=== PATIENT | male | born 1955 | race African-American/Black ===

== ENCOUNTER 2017-02-09 09:29 | Inpatient (IN) | payer OTHER ==
[~2017-02-09] VITALS: Ht 180.3 cm; Wt 115.7 kg
--- NOTE | ~2017-02-09 | H ---
[facility] [place] [address] HISTORY AND PHYSICAL Name: SUZETTE SEVERINO Room #: 427-P [facility] IN M.R.#: [id number] Admission: 02/09/17 Attend Phys: Kade Joseph MD Discharge: Date of : 59 Report #: [id number] THIS REPORT FOR: //name// CC: FAM unknown Kade Joseph DATE OF SERVICE: 02/09/2017 CHIEF COMPLAINT: Bilateral lower extremity swelling and pain. HISTORY OF PRESENT ILLNESS: The patient is a 61-year-old man with history of lymphedema, who noticed increased swelling and redness in bilateral lower extremities during last 3-4 days. Then, the patient developed blisters, erythematous discoloration, and severe pain. He presents to the Emergency Room. Based on clinical examination, the patient is suspected to have cellulitis. The patient has no other symptoms. He denies chest pain, shortness of breath, heart palpitations, dizziness, blurry vision or other symptoms. His blood pressure has been stable, and he is afebrile. PAST MEDICAL HISTORY: 1. Chronic lymphedema. 2. History of cellulitis. 3. Chronic back pain, opiate dependent, currently on methadone. 4. Schizophrenia. CURRENT MEDICATIONS: Lasix 40 mg once a day, potassium chloride 10 mEq once a day, Abilify 10 mg at night, and methadone 110 mg once a day. FAMILY HISTORY: Reviewed and not pertinent to the patient's current condition. SOCIAL HISTORY: The patient lives by himself. He is on disability due to schizophrenia. He does not smoke cigarettes and does not drink alcohol. PHYSICAL EXAMINATION: GENERAL: The patient is a middle-aged man who is in no apparent distress. VITAL SIGNS: Blood pressure is 151/71, heart rate is 76, respiration is 18, and temperature is 98.0. HEENT: Pupils are equal. Eye movements are normal. The patient has anicteric sclerae. The patient has no teeth. Oral mucosa is moist. JVD is not appreciated. The patient does not have neck lymphadenopathy. RESPIRATORY: Chest moves symmetrically with breathing. Lungs are clear to auscultation bilaterally. CARDIOVASCULAR: The patient has regular rhythm and rate. He has no murmurs, gallops or rubs. GASTROINTESTINAL: Abdomen is slightly distended. Bowel sounds are present. [address] [address] HISTORY AND PHYSICAL Name: SUZETTE SEVERINO Room #: 427-P [facility] IN M.R.#: [id number] Admission: 02/09/17 Attend Phys: Kade Joseph MD Discharge: Date of : 59 Report #: [id number] The patient has no tenderness. Hepatomegaly or splenomegaly is not palpated. MUSCULOSKELETAL: The patient has no joint deformity. Range of motion is normal. He has 2+ pitting edema on the legs, blisters. Skin is erythematous and warm. NEUROLOGIC: The patient is alert and oriented x 3. His examination is grossly nonfocal. LABORATORY DATA: Metabolic profile shows potassium of 3.4, but otherwise basic metabolic profile is normal. On CBC, the patient has normal CBC and differential, except for slightly high monocytes at 11.2%. ASSESSMENT AND PLAN: 1. Bilateral lower extremity cellulitis, in a setting of chronic lymphedema, recurrent problem. The patient is started on IV Ancef. Blood cultures are taken. Leg elevation. 2. Chronic lymphedema. Lower extremity swelling. Change Lasix to IV. Monitor electrolytes. Low salt diet. 3. Hypokalemia, mild. It will be replaced and rechecked. 4. Schizophrenia. Stable, resume Abilify, home regimen. 5. Chronic back pain, opiate dependent. Methadone dose is being clarified, and will be resumed at outpatient regimen. 6. Deep venous thrombosis prophylaxis. SubQ Lovenox. <ELECTRONICALLY SIGNED> By: Kade Joseph MD 02/09/176 1514 1526 Kade Joseph MD /nt
[2017-02-09 09:30] VITALS: BP 157/82
[2017-02-09] MEDS ORDERED: LASIX 40 MG TAB40 M1 PO (09:40)
[2017-02-09] MEDS ORDERED: KLOR-CON 1010 MEQ PO (09:40)
[2017-02-09 10:04] LABS: ABSOLUTE NEUTROPHILS 5.1 thou/uL (1.4-8.2); BASOPHILS 0.7 % (0.0-2.0); EOSINOPHILS 2.9 % (0.0-3.0); HEMOGLOBIN 15.2 gm/dL (14.0-18.0); LYMPHOCYTES 23.1 % (24.0-44.0); MCH 29.8 pg (26.0-34.0); MCV 90.4 fL (80.0-100.0); MONOCYTES 11.2 % (1.0-8.0); PLATELET COUNT 199 thou/uL (150-400); POLYS 62.1 % (36.0-66.0); RBC 5.09 mil/uL (4.50-6.00); RDW 14.1 % (10.5-14.5); WBC 8.3 thou/uL (4.0-11.0)
[2017-02-09 10:05] LABS: MANUAL DIFF NO
[2017-02-09 10:11] LABS: POTASSIUM 3.4 mmol/L (3.5-5.1)
[2017-02-09 11:15] VITALS: BP 149/71
[2017-02-09 12:54] VITALS: BP 146/74
[2017-02-09 14:00] VITALS: BP 151/71
[2017-02-09 17:57] LABS: URINE BILIRUBIN NEGATIVE (Negative); URINE BLOOD NEGATIVE (Negative); URINE COLOR YELLOW; URINE GLUCOSE-RANDOM* NEGATIVE (Negative); URINE KETONES NEGATIVE (Negative); URINE LEUKOCYTES-REFLEX NEGATIVE (Negative); URINE PROTEIN (DIPSTICK) NEGATIVE (Negative)
[2017-02-09 20:30] VITALS: BP 149/82
[2017-02-10 03:11] VITALS: BP 125/63
[2017-02-10 07:38] VITALS: BP 147/74
[2017-02-10 10:31] VITALS: BP 147/74
[2017-02-10 15:57] VITALS: BP 123/71
[2017-02-10 20:00] VITALS: BP 125/71
[2017-02-11 00:12] VITALS: BP 115/70
[2017-02-11 04:08] VITALS: BP 141/67
[2017-02-11 05:06] VITALS: BP 141/67
[2017-02-11 06:12] LABS: ABSOLUTE NEUTROPHILS 4.8 thou/uL (1.4-8.2); BASOPHILS 0.8 % (0.0-2.0); EOSINOPHILS 4.3 % (0.0-3.0); HEMATOCRIT 43.9 % (42.0-52.0); HEMOGLOBIN 14.1 gm/dL (14.0-18.0); LYMPHOCYTES 30.5 % (24.0-44.0); MCH 29.8 pg (26.0-34.0); MCHC 32.2 g/dL (28.0-37.0); MCV 92.5 fL (80.0-100.0); MONOCYTES 9.9 % (1.0-8.0); PLATELET COUNT 192 thou/uL (150-400); POLYS 54.5 % (36.0-66.0); RBC 4.75 mil/uL (4.50-6.00); RDW 13.9 % (10.5-14.5); WBC 8.8 thou/uL (4.0-11.0)
[2017-02-11 06:17] LABS: MANUAL DIFF NO
[2017-02-11 06:32] LABS: MAGNESIUM 1.9 mg/dL (1.8-2.4); POTASSIUM 3.9 mmol/L (3.5-5.1)
[2017-02-11 07:30] VITALS: BP 156/76
[2017-02-11 16:30] VITALS: BP 144/85
[2017-02-11 19:49] VITALS: BP 149/82
[2017-02-12 05:00] VITALS: BP 140/75
[2017-02-12 07:16] VITALS: BP 141/87
[2017-02-12 08:44] LABS: ABSOLUTE NEUTROPHILS 3.9 thou/uL (1.4-8.2); BASOPHILS 0.9 % (0.0-2.0); EOSINOPHILS 5.3 % (0.0-3.0); HEMATOCRIT 48.8 % (42.0-52.0); HEMOGLOBIN 15.5 gm/dL (14.0-18.0); LYMPHOCYTES 33.7 % (24.0-44.0); MCH 29.5 pg (26.0-34.0); MCHC 31.8 g/dL (28.0-37.0); MONOCYTES 10.2 % (1.0-8.0); PLATELET COUNT 215 thou/uL (150-400); POLYS 49.9 % (36.0-66.0); RBC 5.25 mil/uL (4.50-6.00); RDW 14.2 % (10.5-14.5); WBC 7.7 thou/uL (4.0-11.0)
[2017-02-12 08:45] LABS: MANUAL DIFF NO
[2017-02-12 08:53] LABS: CALCIUM 9.4 mg/dL (8.5-10.1); CREATININE 0.9 mg/dL (0.7-1.3); POTASSIUM 4.3 mmol/L (3.5-5.1)
[2017-02-12 15:10] VITALS: BP 129/77
[2017-02-12 20:00] VITALS: BP 136/84
[2017-02-13 05:43] VITALS: BP 119/53
[2017-02-13 09:02] VITALS: BP 129/65
[2017-02-13 15:45] VITALS: BP 132/68
[2017-02-13 20:09] VITALS: BP 122/58
[2017-02-14 03:47] VITALS: BP 120/63
[2017-02-14 08:45] VITALS: BP 144/88
[2017-02-14] MEDS ORDERED: KEFLEX500 M1 PO ×2 (12:18→12:42)
[2017-02-14] MEDS ORDERED: ATIVAN0.5 MG PO (12:19)
[2017-02-14] MEDS ORDERED: OXYCODONE-APAP1 EAC6 PO ×2 (12:19→12:42)
[2017-02-14 12:48] VITALS: BP 144/88
== END 2017-02-14 14:19 | disposition home or self-care (01) | DRG 603 ==
LOC: ER 09:29 → EROBS 11:19 → 4E 11:19
PROVIDERS: Hospitalist; Internal Medicine Endocrinology, Diabetes & Metabolism; Nurse Practitioner; Physician Assistant
DX: L03.115 Cellulitis of right lower limb (principal); F11.20 Opioid dependence, uncomplicated; L03.116 Cellulitis of left lower limb; E87.6 Hypokalemia; I89.0 Lymphedema, not elsewhere classified; M54.9 Dorsalgia, unspecified; G89.29 Other chronic pain; F20.9 Schizophrenia, unspecified; Z88.8 Allergy status to other drugs, medicaments and biological substances
CPT/HCPCS: 10084

== ENCOUNTER 2018-03-23 10:24 | Emergency (ER) | payer OTHER ==
[~2018-03-23] VITALS: Ht 177.8 cm; Wt 106.6 kg
[~2018-03-23 10:24] MED LIST: ATIVAN0.5 MG PO; KEFLEX500 M1 PO; KLOR-CON 1010 MEQ PO; LASIX 40 MG TAB40 M1 PO; OXYCODONE-APAP1 EAC6 PO
[2018-03-23] MEDS ORDERED: POTASSIUM20 PO (10:33)
[2018-03-23] MEDS ORDERED: METHADOSE40 MG PO (10:34)
[2018-03-23 11:57] LABS: ABSOLUTE NEUTROPHILS 4.2 thou/uL (1.4-8.2); BASOPHILS 0.6 % (0.0-2.0); EOSINOPHILS 4.6 % (0.0-3.0); HEMATOCRIT 41.3 % (42.0-52.0); HEMOGLOBIN 13.6 gm/dL (14.0-18.0); LYMPHOCYTES 29.9 % (24.0-44.0); MCH 30.3 pg (26.0-34.0); MCV 91.9 fL (80.0-100.0); MONOCYTES 9.3 % (1.0-8.0); PLATELET COUNT 185 thou/uL (150-400); POLYS 55.6 % (36.0-66.0); RDW 13.9 % (10.5-14.5); WBC 7.6 thou/uL (4.0-11.0)
[2018-03-23 12:12] LABS: CALCIUM 8.8 mg/dL (8.5-10.1); CREATININE 0.9 mg/dL (0.7-1.3); POTASSIUM 4.5 mmol/L (3.5-5.1)
[2018-03-23] MEDS ORDERED: KEFLEX500 M1 PO (12:53)
[2018-03-23] MEDS ORDERED: TRAMADOL 50 MG50 MG PO (12:56)
[2018-03-23] MEDS ORDERED: VOLTAREN GEL 1100 G2 TOP (12:57)
[2018-03-23] MEDS ORDERED: ACETAMINOPHEN-1 EAC1 PO (13:08)
[2018-03-23 13:10] VITALS: BP 140/81
== END 2018-03-23 13:53 | disposition home or self-care (01) ==
LOC: ER 10:24
PROVIDERS: Physician Assistant
DX: I89.0 Lymphedema, not elsewhere classified (principal); L03.116 Cellulitis of left lower limb; L03.115 Cellulitis of right lower limb; F20.9 Schizophrenia, unspecified; Z88.6 Allergy status to analgesic agent; Z88.8 Allergy status to other drugs, medicaments and biological substances

== ENCOUNTER 2018-06-04 14:02 | Inpatient (IN) | payer OTHER ==
[~2018-06-04] VITALS: Ht 180.3 cm; Wt 122.5 kg
[2018-06-04 14:02] VITALS: BP 143/70
[~2018-06-04 14:02] MED LIST changes: +ACETAMINOPHEN-1 EAC1 PO; +METHADOSE40 MG PO; +POTASSIUM20 PO; +TRAMADOL 50 MG50 MG PO; +VOLTAREN GEL 1100 G2 TOP
--- NOTE | 2018-06-04 14:10 | NUR ---
PT HAD STEADY GAIT AMBULATING TO ROOM 10.
[2018-06-04 14:50] LABS: AMP/METHAMP Negative (Negative); BARBITURATES Negative (Negative); COCAINE Negative (Negative); METHADONE POSITIVE (Negative); OPIATES Negative (Negative); PCP Negative (Negative)
[2018-06-04 14:58] LABS: BENZODIAZEPINES Negative (Negative)
[2018-06-04 15:09] LABS: ABSOLUTE NEUTROPHILS 2.8 thou/uL (1.4-8.2); BASOPHILS 0.7 % (0.0-2.0); EOSINOPHILS 3.9 % (0.0-3.0); HEMATOCRIT 40.4 % (42.0-52.0); HEMOGLOBIN 13.2 gm/dL (14.0-18.0); LYMPHOCYTES 41.6 % (24.0-44.0); MCH 29.8 pg (26.0-34.0); MCHC 32.6 g/dL (28.0-37.0); MCV 91.5 fL (80.0-100.0); MONOCYTES 10.1 % (1.0-8.0); PLATELET COUNT 172 thou/uL (150-400); POLYS 43.7 % (36.0-66.0); RBC 4.42 mil/uL (4.50-6.00); WBC 6.5 thou/uL (4.0-11.0)
[2018-06-04 15:15] LABS: ANION GAP 6 mmol/L (7-16); BUN 13 mg/dL (7-18); CALCIUM 8.9 mg/dL (8.5-10.1); CHLORIDE 105 mmol/L (98-107); CO2 30 mmol/L (21-32); GLUCOSE 86 mg/dL (74-106); POTASSIUM 4.2 mmol/L (3.5-5.1); SODIUM 141 mmol/L (136-145)
[2018-06-04 15:24] LABS: ALBUMIN 3.2 g/dL (3.4-5.0); APTT 27.1 Seconds (24.5-32.8); INR 1.1; MAGNESIUM 1.8 mg/dL (1.8-2.4); SGOT 31 U/L (15-37); SGPT 33 U/L (30-65); TOTAL BILIRUBIN 0.6 mg/dL (<0.1-1.0); TOTAL PROTEIN 7.8 g/dL (6.4-8.2); TROPONIN-I <0.06 ng/mL (<0.06)
[2018-06-04 16:06] VITALS: BP 137/65
[2018-06-04 17:52] VITALS: BP 131/61
[2018-06-04 18:15] VITALS: BP 152/89
--- NOTE | 2018-06-04 19:15 | NUR ---
PT ARRIVED 1800 FROM ED, CELLULITIS AND LYMPHADIMA, ALERT X3, STATES HE LIVES IN APARTMENT, PAIN MANAGED WITH MEDS. PROVIDED BOX MEAL AND DRINK, NOTED [facility]. CONTINENT USES URINAL, NO TEETH. SWELLING AND REDNESS WITH BLISTERS BILATERAL LE. ADDMISSION HISTORY AND ASSESMENT COMPLETED CALL LIGHT IN REACH.
[2018-06-04 19:24] VITALS: BP 142/81
[2018-06-05 07:25] VITALS: BP 122/66
--- NOTE | 2018-06-05 13:37 | NUR ---
TOWARDS POC PT A/O X4, VSS, AFEBRILE, NO SOA, NO NV. PAIN MANAGED BY MEDICATIONS. PT WAS AGITATED THIS PM ABOUT HIS METHADONE. PT WAS TAKING 175MG AT HOME, NOTIFIED AND PUT HIM TO 30MG BID. PT IS NOT HAPPY ABOUT IT. PT WENT DOWNSTAIRS AT ER AND CALL 911 ACCUSED THE RN THAT HE'S STEALING HIS MEDICATIONS.
[2018-06-05 14:02] VITALS: BP 149/84
[2018-06-06 08:00] VITALS: BP 143/64
--- NOTE | 2018-06-06 08:16 | NUR ---
PROGRESS PT INAPPROPRIATE WALKING IN HALLS CURSING AT STAFF. AMBULATED DOWN TO ED INDEPENDENTLY AT 1900 STATED HE WAS LEAVING, I WENT DOWN AND REQUESTED HE RETURN TO [facility] TO TALK ABOUT CARE AND GET IV REMOVED. PT DECIDED TO STAY, AFTER DISCUSSING PAIN MANAGEMENT. TRUCK SALES REPRESENTATIVE CAME TO TALK TO PT AND ADVISED IF HE LEAVES THE UNIT AGAIN HE WOULD BE CONSIDERED HAVING LEFT AGAINST MEDICAL ADVICE. PT AGREED TO REMAIN ON UNIT AND STAY UNTIL THE MORNING.
[2018-06-06] MEDS ORDERED: CLEOCIN HCL150 MG PO (10:05)
[2018-06-06] MEDS ORDERED: LASIX 40 MG TAB40 M1 PO (10:06)
[2018-06-06] MEDS ORDERED: OXYCODONE-APAP1 EAC6 PO (10:08)
[2018-06-06 10:35] VITALS: BP 143/64
--- NOTE | 2018-06-06 11:20 | NUR ---
ASSUMED PATIENT CARE AT 0715. A&OX4. PATIENT VERY AGGRESSIVE AND ABUSIVE TO STAFF. PATIENT STATING "GET OUT OF MY ROOM BITCH". PATIENT STARTED BANGING ON MEDICATION ROOM DOOR AND STATED "GIVE ME MY MEDICATION BITCH". SECURITY WAS CALLED. HOSPITALIST INFORMED OF PATIENTS OUTBURSTS. PATIENTS LEGS LOOKING BETTER. DOCTOR CHANGED ANTIBIOTICS TO ORAL AND CLEARED PATIENT FOR DISCHARGE. DISCHARGE INSTRUCTIONS DISCUSSED. CAB CALLED AND PATIENT GIVEN CAB VOUCHER.
== END 2018-06-06 11:41 | disposition home or self-care (01) | DRG 603 ==
LOC: ER 14:02 → EROBS 15:48 → 4W 17:56
PROVIDERS: Emergency Medicine; ADMIT Hospitalist
DX: L03.116 Cellulitis of left lower limb (principal); F20.9 Schizophrenia, unspecified; I89.0 Lymphedema, not elsewhere classified; G89.4 Chronic pain syndrome; L03.115 Cellulitis of right lower limb; Z79.82 Long term (current) use of aspirin; Z79.899 Other long term (current) drug therapy
CPT/HCPCS: 10040

== ENCOUNTER 2018-06-21 09:11 | Emergency (ER) | payer OTHER ==
[~2018-06-21] VITALS: Ht 180.3 cm; Wt 97.5 kg
[~2018-06-21 09:11] MED LIST changes: +CLEOCIN HCL150 MG PO
[2018-06-21 09:12] VITALS: BP 124/61
[2018-06-21 10:55] LABS: URINE BILIRUBIN NEGATIVE (Negative); URINE BLOOD NEGATIVE (Negative); URINE CLARITY CLEAR; URINE COLOR YELLOW; URINE GLUCOSE-RANDOM* NEGATIVE (Negative); URINE KETONES NEGATIVE (Negative); URINE LEUKOCYTES-REFLEX NEGATIVE (Negative); URINE NITRITE-REFLEX NEGATIVE (Negative); URINE PROTEIN (DIPSTICK) NEGATIVE (Negative); URINE SPECIFIC GRAVITY 1.025 (1.005-1.035); URINE UROBILINOGEN 0.2 E.U./dl (0.2-1.0)
== END 2018-06-21 12:41 | disposition home or self-care (01) ==
LOC: ER 09:11
PROVIDERS: Emergency Medicine
DX: L02.426 Furuncle of left lower limb (principal); G89.29 Other chronic pain; M79.605 Pain in left leg; R60.0 Localized edema; M79.662 Pain in left lower leg; F20.9 Schizophrenia, unspecified; Z88.6 Allergy status to analgesic agent

== ENCOUNTER 2019-04-14 10:48 | Inpatient (IN) | payer OTHER ==
[~2019-04-14] VITALS: Ht 180.3 cm; Wt 122.5 kg
--- NOTE | ~2019-04-14 | HC ---
[facility] [place] [address] CONSULTATION Name: SUZETTE SEVERINO Room #: 436-P ADM IN M.R.#: [id number] Admission: 04/14/19 Attend Phys: Jens Celestin MD Discharge: Date of : 59 Report #: [id number] THIS REPORT FOR: //name// CC: FAM unknown Jens Celestin DATE OF SERVICE: 04/17/2019 REASON FOR CONSULTATION: Mass in L1. REQUESTING PHYSICIAN: Dr. Celestin. HISTORY OF PRESENT ILLNESS: The patient is a 63-year-old man who was admitted to the hospital with complaints of intractable low back pain after a fall 4 days ago. He had a CT scan of the spine, which showed expansive lesion in L1, small lytic lesion in L2. MRI showed destructive mass in L1. The patient is scheduled for biopsy tomorrow. Oncology consult is requested. He continues to have low back pain, but somewhat comfortable right now. He states that he has not had bone pain prior to admission to the hospital which was prior to her fall. He noticed that he has been losing weight. He states that he lost 30 pounds over 2 months. He noticed that he has severe burning in his feet while walking several weeks ago. Currently, he has some numbness, but no significant burning. He denies incontinence, urinary or bowel incontinence. He has constipation, which is usual for him. He does not have any significant numbness or burning ____ numbness in feet. PAST MEDICAL HISTORY: Significant for bilateral leg cellulitis ____. Schizophrenia. SOCIAL HISTORY: He does not smoke. He has 1 daughter who lives in [place]. He lives with his girlfriend. FAMILY HISTORY: Noncontributory. REVIEW OF SYSTEMS: See above. PHYSICAL EXAMINATION: GENERAL: Reveals a well-developed, well-nourished -[place] man, not in acute distress. VITAL SIGNS: Blood pressure 142/64, heart rate is 76, temperature 98.3, respirations 16. NECK: Supple. HEART: Normal S1, S2. LUNGS: Clear. ABDOMEN: Obese. EXTREMITIES: +1 edema. Muscle strength 2/4. There is no cervical or axillary [address] [address] CONSULTATION Name: SUZETTE SEVERINO Room #: 436-P ADM IN .R.#: [id number] Admission: 04/14/19 Attend Phys: Jens Celestin MD Discharge: Date of : 59 Report #: [id number] lymphadenopathy. MENTAL STATUS: Alert and oriented x 3. LABORATORY DATA: White count 10.5, hemoglobin 16.1, platelets 199. Sodium 140, potassium 4.4, BUN 16, creatinine 1.1, total bilirubin 1.2, alkaline phosphatase 152, AST 78, ALT 18, total protein 9.8, albumin 3.5. RADIOLOGY: CT scan of L-spine, MRI reviewed. ASSESSMENT AND PLAN: Lytic bone lesion concerning for neoplastic process, possibly myeloma. Plan is to order serum protein electrophoresis, urine protein electrophoresis, immunofixation, immunoglobulin levels, serum free light chain assay, PSA. I agree with biopsy. We will await for biopsy results for further workup and management. Thank you very much for allowing me to participate in this case. Dr. Hicks will follow the patient. By: 1352 25 Mark Herbert MD /nt
[2019-04-14 10:49] VITALS: BP 163/81
[2019-04-14 12:27] LABS: HEMOGLOBIN 16.1 gm/dL (14.0-18.0); MCH 29.9 pg (26.0-34.0); MCHC 32.9 g/dL (28.0-37.0); MCV 90.9 fL (80.0-100.0); PLATELET COUNT 199 thou/uL (150-400); RBC 5.39 mil/uL (4.50-6.00); RDW 14.1 % (10.5-14.5); WBC 10.5 thou/uL (4.0-11.0)
[2019-04-14 12:42] LABS: CREATININE 1.1 mg/dL (0.7-1.3); POTASSIUM 4.4 mmol/L (3.5-5.1)
[2019-04-14 12:45] LABS: ALBUMIN 3.5 g/dL (3.4-5.0); TOTAL BILIRUBIN 1.2 mg/dL (<0.1-1.0); TOTAL PROTEIN 9.8 g/dL (6.4-8.2)
[2019-04-14 13:24] VITALS: BP 162/82
[2019-04-14 13:29] LABS: ABSOLUTE NEUTROPHILS 8.3 thou/uL (1.4-8.2); ANISOCYTOSIS 1+
[2019-04-14 13:30] LABS: LARGE PLATELETS OCCASIONAL
[2019-04-14 13:41] VITALS: BP 156/81
[2019-04-14 15:16] VITALS: BP 149/70
--- NOTE | 2019-04-14 17:03 | NUR ---
Pt came to unit from ER approx 1530. Pt a&ox4. Pt unkempt. Admission completed. C/o low back pain. Prn pain med administered. Pt came to unit after MRI. Pt states he lives in an apartment and EMS had to break the door to get to the patient due to his inability to ambulate. Call light within reach. Fall precautions in place.
[2019-04-14 19:35] VITALS: BP 151/75
--- NOTE | 2019-04-15 01:52 | NUR ---
ASSUMED PT CARE AT 1900. PT REPORTS SEVERE PAIN IN BACK, UNABLE TO GET COMFORTABLE. PAIN MEDS PROVIDE LITTLE RELIEF. PT UNKEMPT. NO APPETITE AND REPORTS NO BM IN 7 DAYS BUT VERY ACTIVE BOWEL SOUNDS. EPISODES OF INCONTINENCE TONIGHT. DOES NOT WANT TO WEAR GOWN, WILLING TO COVER LOWER HALF OF BODY WITH GOWN BUT WILL NOT COVER TOP HALF. NO NAUSEA THIS SHIFT, DRINKING SODA. URINE IS DARK YELLOW, ALMOST RED. EDUCATED PT ON IMPORTANCE OF STAYING HYDRATED. WILL CONTINUE TO MONITOR.
[2019-04-15 03:25] VITALS: BP 146/80
[2019-04-15 08:11] VITALS: BP 118/68
--- NOTE | 2019-04-15 13:08 | NUR ---
PT CARE ASSUMED AT 0700. A&Ox4. PT PAIN CONTROLLED WELL. CESAR DRESSING INTACT. ICE PACK IN PLACE. VITALS STABLE. PT UP IN THE RECLINER. PT CLEARED BY PT TO GO HOME. AWAITING DISCHARGE ORDERS. IV PATENT, WITH NO REDNESS OR EDEMA. LUNGS CLEAR. CAPILARY REFLEX INTACT.
--- NOTE | 2019-04-15 16:17 | NUR ---
PATIENT SEEN BY NIEVES CHAPMAN NP WITH DR. BOX, THIS DATE FOR ACUTE REHAB CONSULT. PATIENT IS A CANDIDATE FOR ACUTE REHAB AND CAN ADMIT WHEN MEDICALLY STABLE. ANTICIPATE ADMISSION EARLY IN WEEK OF 04/18/19. COMMAND AND CONTROL SYSTEMS INTEGRATOR INFORMED.
--- NOTE | 2019-04-15 16:20 | NUR ---
ASSESSMENT-PT LIVES ON THE UPPER LEVEL OF A 4PLEX APT. HE SAYS HE HAS 18 STEPS TO GET TO HIS APT WITH A ONE SIDED RAIL. PRIOR TO HIS FALL AT HOME PT WALKED ALL OVER ON HIS OWN AND DID HIS OWN ADLS. EMS HAD TO BRAK DOWN THE DOOR OF HIS APT TO GET TO HIM. IT APPEARS HE HAD FALLEN A FEW DAYS AGO?? PT HAD A RN AND EDNA PALMA VISIT HIM FROM THE [facility] EARLIER. SWAPNA SEES PT WEEKLY, & HER PAGER # IS [phone]. PT WAS GETTING MEALS ON WHEELS. PT SAYS IT WAS GETTING HARD FOR HIM TO GET UP THE STEPS. SWAPNA SAYS THEY WERE GETTING READY TO ARRANGE SERVICES FORPT. PT WAS TO SCHEDULED TO BE IMAGED AT THE [facility] BUT HE MISSED HIS APPT, RELATED TO HIS BACK. PT HAS HX OF PARANOID PSYCHIZO & GETS A SHOT MONTHLY AT . PT HAS LYMPHEDEMA IN HIS LEGS. PT HAS A SISTER DELLA HERNANDEZ [phone] AND A DTR. FOLLOWING TO ASSIST WITH DC PLANNING. [facility] HAS EVALAUTED PT. AWAITING BX OF MASS IN PT'S BACK TO ASSIST FURTHER WITH DC PLANNING.
[2019-04-15 17:06] VITALS: BP 130/77
[2019-04-15 17:57] LABS: URINE BILIRUBIN 1+ (Negative); URINE BLOOD TRACE (Negative); URINE CLARITY SL CLOUDY; URINE COLOR ORANGE; URINE GLUCOSE-RANDOM* NEGATIVE (Negative); URINE KETONES NEGATIVE (Negative); URINE LEUKOCYTES NEGATIVE (Negative); URINE NITRITE NEGATIVE (Negative); URINE PROTEIN (DIPSTICK) NEGATIVE (Negative); URINE SPECIFIC GRAVITY >= 1.030 (1.005-1.035)
[2019-04-15 17:59] LABS: ICTOTEST (BILI CONFIRMATORY) Positive (Negative)
--- NOTE | 2019-04-15 18:38 | NUR ---
PT CARE ASSUMED AT 0700. A&Ox4. PT IS IN A LOT OF PAIN THAT IS NOT CONTROLLED WITH THE PAIN MEDICATION THAT HE HAS ON BOARD. PT DID NOT GET OUT OF THE BED ALL DAY BUT DID SIT AT THE EDGE OF HIS BED FOR ABOUT 10 MINUTES WITH PT/OT. PT REFUSED A BED BATH TODAY. PT REFUSES HIS Q2 TURNS. PT WAS NOT ABLE TO HAVE A BOWEL MOVEMENT WITH HIS BOWELPREP. URINALYSIS CAME BACK POSITIVE FOR BLOOD AND PER DR. VARELA WE ARE TO OBSERVE THIS FOR RIGHT NOW. PT IS TO HAVE A BIOPSY DONE ON THURSDAY WHICH HE NEEDS TO BE NPO AFTER MIDNIGHT FOR. PT USES THE URINAL BUT IS INCONTINENT TO BOWEL IF NOT TENDED TO QUICKLY. BED IS IN LOW POSITION, WITH BED ALARM IN PLACE, AND LOCKED. CALL LIGHT IN REACH. PT COMES FROM A [facility], HIS NURSE AND DEBUG TECHNICIAN CAME TO SEE HIM TODAY.
[2019-04-15 19:10] VITALS: BP 132/89
[2019-04-16 02:50] VITALS: BP 123/77
--- NOTE | 2019-04-16 05:49 | NUR ---
PT AOX4. PT REPORTS PAIN 8/10 IN LOWER BACK AND BLE. PT RECEIVING PRN IV MORPHINE Q4HR. PT CONTINUES TO REST IN BED, ABLE TO REPOSITION HIMSELF INDEPENDENTLY WITH EXTRA TIME. PT HAD MUCUS BOWEL MOVEMENT. PT INCONTINENT OF BOWEL AND BLADDER, WILL USE URINAL IF GIVEN ENOUGH TIME. TOLERATING PO INTAKE WITHOUT ISSUE. ENCOURAGED TO NOTIFY STAFF FOR ALL NEEDS. CALL LIGHT WITHIN REACH, BED IN LOWEST POSITION, BED ALARM ON. WILL CONTINUE TO MONITOR.
[2019-04-16 07:30] VITALS: BP 144/72
[2019-04-16 11:40] VITALS: BP 144/72
--- NOTE | 2019-04-16 11:47 | NUR ---
PT CARE ASSUMED AT 0700. a&Ox4. PAIN STILL NOT MANAGED WELL WITH IV MORPHINE. SPOKE TO DR. VARELA ABOUT THIS AND PO MORPHINE ADDED. PT TURNS HIMSELF AND REFUSES Q2 TURNS. PT REQUESTED SOMETHING TO HELP HIM SLEEP AT NIGHT. DR. VARELA ADDED A SLEEP AID PRN. PT USES A URINAL. URINE HAS A CHRISTINA TINT MD AWARE. IV IS PATENT, WITH NO REDNESS OR EDEMA. AWAITING BIOPSY ON THURSDAY. BED IN LOW POSITION, WITH BEDALARM IN PLACE AND LOCKED. CALL LIGHT WITHIN REACH.
[2019-04-16 17:17] VITALS: BP 131/77
[2019-04-16 20:00] VITALS: BP 148/81
--- NOTE | 2019-04-17 03:40 | NUR ---
Pt a&ox4. pain was controlled with 4mg of iv morphine. pt did not want to try po pain meds nor the 2mg iv med that was ordered. pt has been resting well through out the night. no s/s of distress. will cont to monitor
[2019-04-17 04:58] VITALS: BP 149/72
[2019-04-17 08:03] VITALS: BP 142/64
--- NOTE | 2019-04-17 14:57 | NUR ---
PT CARE ASSUMED AT 0700. A&Ox4. PT PAIN BETTER CONTROLLED WITH THE CHANGE FROM MORPHINE IR PO TO PERCOCET AND SPACED OUT MORE. PT IS HAVING A BIPSY TOMORROW AND NEEDS TO BE NPO AFTER MIDNIGHT. CONSENT ON CHART NOT SIGNED. PT RECEIVED AND BED BATH AND WAS SHAVED. PT IS BECOMING MORE COMPLIANT WITH LETTING THE STAFF HELP HIM. PT SKIN IS INTACT. PT HAS MOISTURE IN HIS ABDOMEN FOLD WHICH WE HAVE APPLIED DRY TOWELS AND NYSTATIN IN. THE ONCOLOGIST HAS SEEN [facility] TODAY AND DISCUSSED TESTS AND HIS PLAN WITH THE PT. BED IS IN LOW POSITION, LOCKED WITH BED ALARM IN PLACE. CALL LIGHT IS WITHIN REACH.
[2019-04-17 17:35] VITALS: BP 148/70
[2019-04-17 19:15] VITALS: BP 111/69
[2019-04-17 23:06] LABS: IgA 923 mg/dL (61-437); IgG 2474 mg/dL (700-1600); IgM 44 mg/dL (20-172); PSA TOTAL 0.2 ng/mL (0.0-4.0)
[2019-04-18] VITALS (11 sets, daily range): BP systolic 131–150; BP diastolic 60–107
--- NOTE | 2019-04-18 02:14 | NUR ---
ASSESSMENT COMPLETED.PT C/O PAIN ON BACK,MANAGED WITH MED.PT REF TO BE REPOSITIONED STATES THAT HE REPOSITIONS SELF IN BED.PT NPO AT THIS TIME FOR A BIOPSY LATER IN THE DAY.PT ABLE TO MAKE HIS NEEDS KNOWN.FALL PRECAUTIONS IN PLACE,CALL LIGHT WITHIN REACH.
[2019-04-18 10:11] LABS: INR 1.2; PROTIME 12.6 Seconds (9.3-11.4)
--- NOTE | 2019-04-18 19:35 | NUR ---
Assumed care of pt at 0700. Pt a&ox4. C/o back pain. Prn pain meds administered. Biopsy and bone scan performed. Lab called stating they had the biopsy specimen but no orders. Provider notified. IR called and stated they will put the orders in. Pt worked with physical therapy today. Call light within reach. Fall precautions in place. Report given to bette JONES.
[2019-04-19 04:33] VITALS: BP 135/61
--- NOTE | 2019-04-19 04:40 | NUR ---
ASSUMED PT CARE AT 1900. PT REPORTS SEVERE PAIN 8-10. PAIN MEDS GIVEN. URINE IS STILL VERY DARK AND FOUL SMELLING, ENCOURAGED INCREASE IN WATER INTAKE. SLEPT ON AND OFF ALL NIGHT, WILL CONTINUE TO MONITOR TONIGHT.
--- NOTE | 2019-04-19 11:23 | NUR ---
WOUND CONSULT; THE RIGHT BUTTOCK HAS A SKIN TEAR, IRREGULAR WOUND MARGINS CLEARLY A SKIN TEAR. BEEFY RED WOUND BED MEASURES 7 X 3 X 0.1 NO S/S OF INFECTION. THIS OCCURRED TODAY WITH TRANSFER. RECOMMENDATIONS; 1-XEROFORM, COVER WITH A BORDER FOAM CHANGE DAILY/PRN 2-LOW AIRLOSS BED PUMP RN PRESENT
[2019-04-19 15:09] LABS: KAPPA FREE LIGHT CHAINS 44.3 mg/L (3.3-19.4); KAPPA/LAMBDA RATIO 0.71 (0.26-1.65); LAMBDA FREE LIGHT CHAINS 62.5 mg/L (5.7-26.3)
--- NOTE | 2019-04-19 15:15 | NUR ---
EDNA reviewed chart and spoke with nursing and attending physician. Pt was [facility] to [facility] today and is progressing towards goals for discharge. [facility] evaluated pt and can accept pt. Discharge to [facility] is anticipated for tomorrow. EDNA met with pt at bedside to provide update. Pt is aware and agreeable with discharge plan. Pt states he is trying to find someone to bring him clothes for rehab. Pt has clothes in his room, that need to be washed. Plan is for pt to discharge to [facility] tomorrow. EDNA is following to assist as needed with discharge planning.
[2019-04-19 16:01] VITALS: BP 145/82
--- NOTE | 2019-04-19 16:42 | NUR ---
Pt received from [address] [place] [address], transferred to room safely. On room air. Vital signs stable. Pt initially resisting care, to move and refusing staff- Dr Celestin informed, talked to patient and encouraged participation in plan of care. On regular diet; tolerating well, no nausea, no vomiting and no abdominal pain. with bandage on his bag- s/p biopsy 04/18. With SL at L hand- intact and flushing well. With minimal swelling on lower extremities. Able to use urinal. Complained of pain, due PRN pain medications given as prescribed. Pt seen by physical therapist, able to transfer bed to bed, use walker and ambulate with minimal assist. Pt with admission orders to rehab, verified with Dr Celestin re: discharge orders- as per Dr Celestin, pt to be transferred to tomorrow- CM informed, pt informed. Noticed that pt has bleeding from his buttocks upon getting up from bed, possible skin tear, pt's buttocks did not drag from the bed- dressing placed to stop bleeding; wound care consult done. Pt seen by Wound team, photo taken by wound nurse and attached to chart, dressing changed. To continue monitoring patient, kept comfortable.
[2019-04-19 19:55] VITALS: BP 1432/83
--- NOTE | 2019-04-20 03:41 | NUR ---
Assumed pt care at 1900. Pt is A/OX4, VSS. C/o back pain/BLE medicated per EMAR and observed sleeping on reassessment. Pt has been in bed through the night states not able to get up because of pain,voiding per urinal urine is dark yellow PO fluids encouraged. Pt offered a bath at HS but declined stating he'll take one in the morning;will re-attempt again. Refuses Q2 turns as well. Fall precautions in place,calls appropriately. Will continue to monitor pt.
[2019-04-20 05:49] LABS: CALCIUM 9.9 mg/dL (8.5-10.1); CREATININE 0.9 mg/dL (0.7-1.3); POTASSIUM 4.3 mmol/L (3.5-5.1)
[2019-04-20 07:04] LABS: HEMATOCRIT 48.4 % (42.0-52.0); HEMOGLOBIN 15.4 gm/dL (14.0-18.0); MCH 29.3 pg (26.0-34.0); MCHC 31.9 g/dL (28.0-37.0); MCV 91.9 fL (80.0-100.0); RBC 5.26 mil/uL (4.50-6.00); RDW 13.6 % (10.5-14.5); WBC 12.3 thou/uL (4.0-11.0)
[2019-04-20 07:43] VITALS: BP 135/74
--- NOTE | 2019-04-20 10:19 | NUR ---
[facility] & SHE TELLS ME SHE HAD GIVEN ME THE INCORRECT PHONE # FOR PT'S SISTER, THIS WAS CORRECTED. PT'S PRIMARY CARE DR AT [place] IS JD [place]Z[place] [phone], EXT [phone] AND ROBERT ROSA IS [address] [place] [phone], EXT [phone]. SWAPNA [phone], EXT [phone] OR [phone]. SHE WAS INFORMED THAT PLAN WAS TO TRANSFER TO TODAY IF MEDICALLY STABLE & ABLE TO MEET THERAPY GUIDELINES.
[2019-04-20] MEDS ORDERED: METHADONE HCL 110 MG PO (10:30)
[2019-04-20] MEDS ORDERED: RESTORIL15 MG PO (10:30)
[2019-04-20] MEDS ORDERED: MIRALAX17 GM PO (10:30)
[2019-04-20] MEDS ORDERED: NYAMYC15 GM TOP (10:30)
[2019-04-20] MEDS ORDERED: LORAZEPAM 0.50.5 MG PO (10:30)
[2019-04-20] MEDS ORDERED: DEXAMETHASONE 44 M1 PO (10:30)
[2019-04-20] MEDS ORDERED: OXYCODONE-APAP1 TAB PO (10:30)
--- NOTE | 2019-04-20 12:03 | NUR ---
PT ALERT AND ORIENTED TIMES FOUR, WITH PERIODS OF CONFUSION. VSS, PT C/O PAIN PRN MEDICATIONS GIVEN WITH SOME RELEIF. PT TOLERATES MEDS AND MEALS. PLANS TO TRANSFER TO [facility] TODAY AFTER LUNCH. PT PROGRESSING TOWRADS POC GOALS.
--- NOTE | 2019-04-20 13:14 | NUR ---
DISCHARGE NOTE: EDNA reviewed chart and spoke with nursing and attending physician. Pt is medically stable for discharge to today. Discharge orders/summary completed. SW discussed with rehab therapist, who confirms they are able to accept pt today. Rehab CM is following to assist as needed with discharge planning.
[2019-04-20 22:06] LABS: GLOBULIN TOTAL 5.5 g/dL (2.2-3.9); M-SPIKE Not Observed g/dL (Not Observed)
[2019-04-22 21:06] LABS: URINE PROTEIN (MG/DL) 18.1 mg/dL (Not Estab.)
--- NOTE | 2019-04-25 23:07 | PATH ---
[facility] [place] [address] PATHOLOGY RPT PROCEDURE Name: JOSE ROBERTO SEVERINO Room #: 410-P [facility] IN M.R.#: [id number] Admission: 04/14/19 Date of : 59 Discharge: 04/20/19 Report #: [id number] Path Case #: [id number] [facility] Accession Number: [id number] . 01 Material submitted: . vertebral column - L1 CORE BIOPSY . 01 Clinician provided ICD-10: M89.9 . 01 Clinical history: . Rule out myeloma. . 02 Diagnosis: "L1 core biopsy", bone biopsy: - DECALCIFIED BONE WITH METASTATIC CARCINOMA. (SEE COMMENT) . (CLW:mmval; 04/25/2019) . . . Special studies report received from [facility], [address] [place] [address], [address], [place], [address], on case [id number], labeled with their number [id number] dated 04/22/2019. . Flow Cytometry: Hematologic Neoplasia Assessment . Clinical History Evaluation for multiple myeloma . Indication for Study Evaluation for multiple myeloma . Specimen Other, Core, L1 . Viability 43% (7AAD exclusion) . Interpretation Other, Core, L1: - No immunophenotypic evidence of a monoclonal plasma cell population. - No immunophenotypic evidence of an abnormal myeloid maturation or an increased blast population. - No immunophenotypic evidence of a T-cell or B-cell lymphoproliferative disorder. . [facility] [address] [place] [address] PATHOLOGY RPT PROCEDURE Name: JOSE ROBERTO SEVERINO Room #: 410-P DIS IN M.R.#: [id number] Admission: 04/14/19 Date of : 59 Discharge: 04/20/19 Report #: [id number] Path Case #: [id number] Comments Flow cytometric analysis detected no immunophenotypic evidence of a clonal plasma cell or B-cell population or an increased blast population. Correlation with available clinical, laboratory, and morphologic data is recommended. . Populations Analyzed Myeloid Blasts: 0.3% No significant immunophenotypic abnormalities Lymphocytes: 38% B-cells: 3.7%, polytypic/polyclonal sIg light chain pattern T-cells: no significant abnormalities of the markers tested CD4+ T-cells: 18.5% (including 1.4% CD57+ cells) CD8+ T-cells: 8.6% (including 3.5% CD57+ cells) CD4:CD8: 2.1 NK cells: 7.0% Neutrophilic Cells: 48% No significant abnormalities of the markers tested Monocytic Cells: 8% Partial CD56 ( 54% of monocytic cells positive) Eosinophils: 2% No relative increase Basophils: 1.2% No relative increase Plasma Cells: 0.01% Few detected; no overt abnormalities of the surface markers tested (plasma cells are typically underrepresented by flow cytometry; cytoplasmic light chains were assessed and they are polytypic) Hematogones: 0.7% Normal B-cell precursors CD45 Negative 1% No significant reactivity with the markers Events/Debris: tested (may represent unlysed red blood cells, erythroid precursors, platelets, debris, etc.) (erythroid precursors may be underrepresented due to sample lysis/processing) . Morphologic Evaluation A slide was reviewed for automotive quality engineer purposes only. . Specimen Description Cell Yield: 1.14x10 and 6 This sample is less than 50% viable which is considered suboptimal for routine clinical flow cytometry analysis. The analysis, however, is being reported because the sample is considered irreplaceable. Because of diminished viability, these results must be interpreted in the context of all available clinical, laboratory, and morphologic data. . . Reagent(s) Used CD2, CD3, CD4, CD5, CD7, CD8, CD10, CD11b, CD13, CD14, CD16, CD19, CD20, CD33, CD34, CD38, CD45, CD56, CD57, CD64, CD117, HLA-DR, kappa, lambda, [address] [address] PATHOLOGY RPT PROCEDURE Name: JOSE ROBERTO SEVERINO Room #: 410-P DIS IN M.R.#: [id number] Admission: 04/14/19 Date of : 59 Discharge: 04/20/19 Report #: [id number] Path Case #: [id number] CD138, CytoKappa, CytoLambda . at [facility] Ludwin Dobbins MD Pathologist . . Intended Use Flow cytometry is optimally used to immunophenotypically characterize abnormal populations when they are detected. Negative flow cytometry results do not exclude lymphoma or neoplasia. Possible false negative flow cytometry results may occur in, but are not limited to, the following: neoplastic cells in Hodgkin lymphoma are not typically adequately represented by routine clinical flow cytometry; neoplastic cells may be lost or inadequately represented due to degeneration, sample processing, sampling artifact, or patchy involvement; plasma cells are typically underrepresented by flow cytometry; immature cells/blasts may be underrepresented due to hemodilution; myeloproliferative disorders and low grade myelodysplasia may not have immunophenotypic abnormalities or increased blasts. Correlation with all available clinical, laboratory, and morphologic data is always necessary to assess for the possibility of false negative flow cytometry results and to establish a diagnosis. Each marker in this analysis was used to assess for potential antigenic abnormalities or to evaluate detected abnormalities. . Any image or images that accompany this report are sales representative metals images only and should not be used to render a diagnosis. . Disclaimer(s) This test was developed and its performance characteristics determined by [facility]. It has not been cleared or approved by the Food and Drug Administration. . Performing Labs This test was performed at [facility]. at [address], [address] - [employer]: Harish Ramires MD. [facility] is a business unit of [facility] a wholly-owned subsidiary of [employer]. . For inquiries, the physician may contact Lab: [phone] . A complete copy of the report is on file. . Professional services performed by [facility]. at [address] [facility] [address], [place] [address]. Technical services performed by [address] [address] PATHOLOGY RPT PROCEDURE Name: JOSE ROBERTO SEVERINO Room #: 410-P DIS IN M.R.#: [id number] Admission: 04/14/19 Date of : 59 Discharge: 04/20/19 Report #: [id number] Path Case #: [id number] [facility] at [address], [place] [address]. . (CLW:dago 04/22/2019) . [facility] 04/25/2019 1326 Local . 02 Comment: Sections show decalcified bony fragments with fresh hemorrhage, edema and fibroblastic proliferation consistent with fracture site. Within a focally fibrotic stroma, there are small groups of infiltrating malignant cells. The nested cells are both loosely cohesive as well as occuring as single cells. Geographic necrosis is identified. Background trilineage hematopoiesis is absent. . To further characterize the neoplastic tumor cells and to identify cells in a tissue architectural context, properly-controlled immunohistochemical stains are performed: . Block A1: AE1/AE3 - Tumor cells reactive; CK ROBIN - Tumor cells reactive; CK7 - Tumor cells focally reactive; CK20 - Tumor cells non-reactive; KIRIT-EP4 - Tumor cells reactive; SAURABH - Tumor cells focally reactive; CD138 - Tumor cells reactive; PSA - Tumor cells non-reactive; PSAP - Tumor cells non-reactive; TTF-1 - Tumor cells non-reactive; CDX2 - Tumor cells non-reactive; PAX 8 - Tumor cells non-reactive; Thrombomodulin - Tumor cells non-reactive; Hepatocyte - Tumor cells non-reactive; Inhibin - Tumor cells non-reactive; [place] and lambda in-situ hybridization - Tumor cells non-reactive, rare plasma cells polyclonal. . Due to the possibility of a plasma cell neoplasm, flow cytometric immunophenotypic analysis was performed at [facility]. The diagnosis is "no immunophenotypic evidence of a monoclonal plasma cell population, no immunophenotypic evidence of an abnormal myeloid maturation or an increased blast population, no immunophenotypic evidence of a T-cell or B-cell lymphoproliferative disorder." There is 0.3% myeloid blasts. There are 38% lymphocytes. Of the lymphocytes, there are 3.7% polyclonal B-cells. T-cells have a CD4/CD8 ratio of 2.1 and no aberrant T-cell antigen expression. There are 0.01% plasma cells. Of the few detected, [facility] [address] [place] [address] PATHOLOGY RPT PROCEDURE Name: JOSE ROBERTO SEVERINO Room #: 410-P DIS IN M.R.#: [id number] Admission: 04/14/19 Date of : 59 Discharge: 04/20/19 Report #: [id number] Path Case #: [id number] no overt abnormalities of the surface marker tested (plasma cells are typically under-represented by flow cytometry, cytoplasmic light chains were assessed and they were polytypic). Please see separate flow cytometry report from [facility] ([id number]). . Cytogenetic chromosomal analysis is pending at [facility] ([id number]). FISH analysis for a multiple myeloma FISH panel was cancelled ([id number]). . Overall, the diagnosis is decalcified bone with metastatic carcinoma. It is poorly-differentiated and the immunohistochemical staining is inconclusive for a primary site. The KIRIT-EP4 positivity suggests a poorly-differentiated adenocarcinoma. There is no evidence of plasma cell dyscrasia/plasma cell neoplasm. Correlation with clinical history, additional laboratory data, radiographic findings and cytogenetics is recommended. . The case is co-reviewed with Dr. Thalia Chandler. The case was discussed with Dr. Jose Hicks by Dr. Thalia Chandler on 04/21/2019 at 10:30 a.m. and again on 04/22/2019 at approximately 1:00 p.m. . (CLW:diony; 04/25/2019) . 02 Electronically signed: . Lauren Sanchez MD, Pathologist NPI- [id number] . 01 Gross description: . The specimen is received in two containers, both labeled "Jose Roberto Severino, L1 core biopsy". The first container is formalin, and contains two cylindrical fragments of ch-white bone measuring in aggregate 1.6 x 0.3 x 0.3 cm. Also present is a cylindrical portion of red brown clotted blood material measuring 1.7 x 0.3 x 0.3 cm. The bony tissue is submitted in cassette A1 following immuno-decalcification. The blood material is submitted in A2. The second container is RPMI, which is red-pink and opaque. The soft tissue is not grossly visible, and removal of the tissue is not attempted. The specimen in RPMI is forwarded entirely for ancillary studies. ([facility]; 04/19/2019) [facility] 04/19/2019 1925 Local . 02 Pathologist provided ICD-10: C79.51 . 02 CPT . 827760, [id number], [id number], U26446, D81137, Y07179 Specimen Comment: A courtesy copy of this report has been sent to [phone], [phone]- Specimen Comment: [phone] [address] PATHOLOGY RPT PROCEDURE Name: JOSE ROBERTO SEVERINO Room #: 410-P DIS IN M.R.#: [id number] Admission: 04/14/19 Date of : 59 Discharge: 04/20/19 Report #: [id number] Path Case #: [id number] Specimen Comment: Report sent to / DR HOWE Performed at: [address] [facility] [address] [id number] MD Dexter Stroud MD Phone: [phone] Performed at: [address] [facility] [address] [id number] MD Pablo Shay MD Phone: [phone]
== END 2019-04-20 13:00 | DRG 477 ==
LOC: ER 10:48 → 4N 12:46 → 4S 12:46 → EROBS 12:46 → 4S 13:42 → 4N 04-19 09:20
PROVIDERS: Hospitalist; Internal Medicine Hematology & Oncology; Physician Assistant; Radiology Vascular & Interventional Radiology; ADMIT Internal Medicine
PROC: 0QB03ZX Excision of Lumbar Vertebra, Percutaneous Approach, Diagnostic (ICD-10-PCS; principal; 2019-04-18)
PROC: 0PB43ZX Excision of Thoracic Vertebra, Percutaneous Approach, Diagnostic (ICD-10-PCS; principal; 2019-04-18)
DX: M47.27 Other spondylosis with radiculopathy, lumbosacral region (principal); E43 Unspecified severe protein-calorie malnutrition; M89.9 Disorder of bone, unspecified; I89.0 Lymphedema, not elsewhere classified; F20.9 Schizophrenia, unspecified; K59.00 Constipation, unspecified; G72.9 Myopathy, unspecified; E66.9 Obesity, unspecified; M19.90 Unspecified osteoarthritis, unspecified site; Z79.891 Long term (current) use of opiate analgesic; Z68.37 Body mass index [BMI] 37.0-37.9, adult; Z79.899 Other long term (current) drug therapy; Z88.5 Allergy status to narcotic agent; Z88.8 Allergy status to other drugs, medicaments and biological substances
CPT/HCPCS: 10102; 10790

== ENCOUNTER 2019-04-19 13:40 | Inpatient (IN) | payer OTHER ==
[~2019-04-19] VITALS: Ht 180.3 cm; Wt 121.6 kg
[2019-04-20] MEDS ORDERED: OXYCODONE-APAP1 TAB PO (10:30)
[2019-04-20] MEDS ORDERED: METHADONE HCL 110 MG PO (10:30)
[2019-04-20] MEDS ORDERED: LORAZEPAM 0.50.5 MG PO (10:30)
[2019-04-20] MEDS ORDERED: DEXAMETHASONE 44 M1 PO (10:30)
[2019-04-20] MEDS ORDERED: MIRALAX17 GM PO (10:30)
[2019-04-20] MEDS ORDERED: NYAMYC15 GM TOP (10:30)
[2019-04-20] MEDS ORDERED: RESTORIL15 MG PO (10:30)
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
[2019-04-20 13:20] VITALS: BP 144/76
--- NOTE | 2019-04-20 13:55 | NUR ---
1330 PATIENT ADMITTED TO ROOM 516. PATIENT IS ALERT AND ORIENTED X4. PATIENT LAINEZ'S, ACOUSTIC ENGINEER ARE EQUAL. LUNGS ARE CLEAR. ABD IS SOFT WITH BSX4. PATIENT HAD BM TODAY. UP IN BED FOR MEALS. PATIENT HAS +2 EDEMA IN HIS LOWER EXTREMITIES. LYMPHEDEMA. PATIENT IS VOIDING CHRISTINA COLORED URINE. FALL AND SAFETY PROTOCOLS IN PLACE. C/O SEVERE BACK PAIN AND BILATERAL HIP PAIN. STATES PAIN IS 8 ON NUMERIC SCALE. PT/OT ST EVALS TO BE COMPLETED TODAY. PATIENT HAS S.L. IN HIS LEFT HAND. WILL CONTINUE TO MONITER.
[2019-04-20 20:13] VITALS: BP 167/80
--- NOTE | 2019-04-21 02:09 | NUR ---
PATIENT CONCERNED ABOUT PAIN CONTROL, HAS NOTICED IMPROVEMENT AT THIS TIME, TOLERATED TURN TO LEFT SIDE WITH PILLOW. BLOOD SUGAR 186 AT HS. URINAL WITH ASSIST
[2019-04-21 07:50] VITALS: BP 148/97
--- NOTE | 2019-04-21 09:52 | NUR ---
RECEIVED CALL FROM [employer] ADDICTION COUNSELOR [phone] AND GAVE HIM 5N # & ASKED HIM TO SPEAK WITH THE RN ON 5N RELATED TO PT'S METHADONE DOSING.
--- NOTE | 2019-04-21 12:59 | NUR ---
ASSUMED CARE AT 0700. PATIENT IS ALERT AND ORIENTED. PATIENT LAINEZ'S, PATIENT C/O BACK PAIN AND BILATERALLY HIP PAIN. LUNGS ARE CLEAR AND DEMINISHED. ABD IS SOFT WITH BSX4. NYSTATIN APPLIED TO ABD FOLDS. INTERDRY ALSO APPLIED BY O.T. PATIENT IS UP WITH ASSIST OF 1 STAFF AND GAIT BELT. UP IN THE CHAIR FOR MEALS. S.L. DC'D. FALL AND SAFETY PROTOCOLS IN PLACE. PAIN ABOVE. DR. VARELA HERE TO SEE PATIENT. PAIN MEDS ADJUSTED. CYMBALTA PO BID ADDED. PATIENT CONTINUES ON SCED PRN PAIN MEDS AND PRN BREAKTHROUGH PAIN MEDS. PATIENT CONTINUES TO PROGRESS SLOWLY TOWARDS D/C GOALS. WILL CONTINUE TO MONITER.
--- NOTE | 2019-04-21 20:14 | HC ---
[facility] [place] [address] CONSULTATION Name: SUZETTE SEVERINO Room #: 516-1 ADM IN M.R.#: [id number] Admission: 04/20/19 Attend Phys: Carlos Valdivia MD Discharge: Date of : 59 Report #: [id number] THIS REPORT FOR: //name// CC: Carlos Valdivia MD FAM unknown GUERITA HOWE DATE OF SERVICE: 04/21/2019 REASON FOR CONSULTATION: Lytic bone lesion. HISTORY OF PRESENT ILLNESS: The patient is a 63-year-old male with lytic bone changes and schizophrenia who was admitted with back pain. He was found to have lytic changes on the CT and MRI of the spine. He had a L1 directed bone marrow biopsy several days ago, results are pending. We now have results of SPEP, which showed polyclonal protein and SIFE does not show monoclonal protein. He does have slight elevation of his IgG at around 2400 if I recall correctly. The patient at this time is up in rehabilitation. He is having some back pain, but he is sitting in the chair and has been managed less well or better well at different times. His bowels have been moving. He does not have any persistent neuropathy at this time. He does any numbness or burning. No fevers, no chills. PAST MEDICAL HISTORY: Notable for history of bilateral leg cellulitis and also schizophrenia. SOCIAL HISTORY: He is originally from [place] that I think [place], now lives locally. Does not smoke, street drugs have been some question, I believe, about some abuse of drugs in the past. FAMILY HISTORY: Noncontributory. PHYSICAL EXAMINATION: GENERAL: The patient appears his stated age. VITAL SIGNS: He is 5 feet and 11 inches, 180.3 cm, weight 270 pounds or 122.9 kilograms. Blood pressure is 167/80, O2 sat 89%, had been 95% earlier in the day. Also, respirations 18, pulse 62, afebrile at 97.6. NEUROLOGIC: Face is symmetrical. Mood is pleasant, conversant, and slightly flat. HEENT: Oropharynx clear. LYMPHATICS: No enlarged lymph nodes in the supraclavicular, cervical, axillary or inguinal region. ABDOMEN: Obese. No masses, nontender. Does have back pain about belt level. EXTREMITIES: Without clubbing or cyanosis. He describes weakness due to pain [facility] [address] [place] [address] CONSULTATION Name: SUZETTE SEVERINO Room #: 516-1 ADM IN M.R.#: [id number] Admission: 04/20/19 Attend Phys: Carlos Valdivia MD Discharge: Date of : 59 Report #: [id number] not due to inability to control it. LABORATORY DATA: Notable for BUN of 18, creatinine 0.9, total bilirubin 1.2, AST 78, alkaline phosphatase 152, total protein had been 9.8. INR had been 1.2. SPEP did not see an M spike. SIFE did not see a monoclonal protein. Light chains are pending. White count recently 12.3, hemoglobin 15.4, and platelets 177. Differential without any acute forms. IgG had been elevated at 2474, IgA slightly elevated at 923, IgM normal. Total PSA is 0.2, kappa lambda free light chain ratio normal at 0.71. UA had had negative protein. As mentioned above, imaging earlier had included CAT scans and MRI spines. The MRI showed expansile lesion involving L1 with posterior extension concerning for malignancy. The MRI did not see any other lesions in those vertebral bodies or impingement. MEDICATIONS: At this time currently include, nystatin topically, methadone 10 mg t.i.d., diclofenac topically, MiraLax 17 grams b.i.d., fentanyl 25 mcg every 72 hours transdermally, temazepam 15 at bedtime as needed, lorazepam 1 mg t.i.d. p.r.n., oxycodone and Percocet 2 tabs q.6 hours p.r.n., bisacodyl p.r.n., docusate p.r.n., Tylenol p.r.n., had been on ____ and this will be held/stopped. ASSESSMENT AND PLAN: 1. Lytic bone change with normal SPEP and SIFE. Await final pathology. Depending upon pathology, may need to consider CAT scans to look for source. 2. Back pain. Continues opiates and topicals. 3. Schizophrenia, benzodiazepines and meds per others. 4. We will follow with you. <ELECTRONICALLY SIGNED> By: Jose Hicks MD 04/21/192013 0915 1030 Jose Hicks MD /nt
[2019-04-21 20:16] VITALS: BP 135/75
--- NOTE | 2019-04-22 00:16 | NUR ---
PT ASSESSMENT DONE AND VSS. MEDS GIVEN INCLUDING WILDA METHADONE AND PRN PERCOCET PER PT REQUEST. THE PM DOSE OF CYMBALTA NOT EFFECTIVE THIS EVENING. PT STILL RAING PAIN AT 8 BEFORE PERCOCET DOSE. MEDS WELL TOLERATED. FALL PRECAUTIONS IN PLACE. HOURLY ROUNDING. SLEEPING WELL. WILL CONTINUE TO MONITOR.
[2019-04-22 09:00] VITALS: BP 145/85
[2019-04-22 18:17] LABS: HEMATOCRIT 50.3 % (42.0-52.0); HEMOGLOBIN 16.1 gm/dL (14.0-18.0); MCH 29.6 pg (26.0-34.0); MCV 92.5 fL (80.0-100.0); RBC 5.44 mil/uL (4.50-6.00); RDW 13.7 % (10.5-14.5); WBC 10.1 thou/uL (4.0-11.0)
--- NOTE | 2019-04-22 18:38 | NUR ---
ASSUMED CARE OF PT AT 0715. PT IS A&OX4 AND VITAL SIGNS ARE STABLE. PT REPORTS PAIN 8-9 IN BACK, PAIN MANAGED WITH PO MEDICATIONS ORDERED. DRESSINGN TO BUTTOCKS CHANGED PER ORDERS. ORDERS FOR CT WITH CONTRAST THIS SHIFT. IV PLACED BY IV TEAM TO LEFT AC 20G, SENT TO CT, RECEIVED CALL REPORTING PULMONARY EMBOLI NOTED IN LUNGS, DR. NICHOLE CALL, NO RETURN CALL AT THIS TIME. PT DENIES SOB, CHEST PAIN, COUGH, CYANOSIS, LIGHTHEADEDNESS OR DIZZINESS. NURSING TO CONTINUE MONITORING PT AND CONTINUE ATTEMPTING TO CONTACT PROVIDER.
[2019-04-22 19:45] VITALS: BP 148/82
[2019-04-22 20:17] LABS: CALCIUM 9.3 mg/dL (8.5-10.1); POTASSIUM 3.6 mmol/L (3.5-5.1)
--- NOTE | 2019-04-22 22:41 | NUR ---
PT ADAMENTLY REFUSED LOVENOX INJECTION. PT INFORMED AND ADVISED BY THIS ARCHITECTURAL DRAFTSMAN, OTHER VICTORIAN LITERATURE PROFESSOR, NEUROLOGY TEACHER HOW IMPORTANT IT WAS TO TAKE INJECTION FOR PE. ADVISED AND EXPLAINED THIS INJECTION WAS FOR LIFESAVING MEASURE AND DIRE CONSEQUENCES COULD POSSIBLY DEVELOP INCLUDING IF NOT TAKEN. PT CONTINUED TO REFUSE AND STATED HE WOULD NOT TAKE INJECTION. PT STATED REASON HE DID NOT WANT A SHOT WAS BECAUSE IT COULD CAUSE SOME PAIN TO HIS STOMACH. DISCUSSED ABOVE IMPORTANCE MULTIPLE TIMES WITH PT AND HE CONTINUED TO REFUSE. ORDERS RECD FOR XARELTO PO AND PT DID TAKE THAT. PHYSICIAN BORING MACHINE SET UP OPERATOR NOTIFIED BY NEUROLOGY TEACHER AND PHYSICIAN AWARE OF SITUATION. FLASK MAKER ANA ALSO NOTIFIED AND AWARE PT REFUSING INJECTION. WILL CONTINUE TO MONITOR.
--- NOTE | 2019-04-23 04:05 | NUR ---
ASSUMED CARE AT APPROX 1900 EVENING 04/22. PT LYING IN BED AT CHANGE OF SHIFT WITH HEAD OF BED ELEVATED. PT DROWSY AND SLEEPING OFF AND ON. PT AWOKE FOR HS MEDS TAKING WITH WATER. PT REFUSED LOVENOX (SEE NOTE). PT VOIDING PER URINAL WITH ASSISTANCE HOLDING URINAL IN PLACE. PT APPEARS TO BE SLEEPING SOUNDLY WITH HOURLY ROUNDING CHECKS. BED ALARM ON AND CALL LIGHT IN REACH. WILL CONTINUE TO MONITOR.
[2019-04-23 08:00] VITALS: BP 142/101
--- NOTE | 2019-04-23 10:32 | NUR ---
ASSUMED CARE OF PT AT 0700. PT IS ALERT AND ORIENTED TO PERSON, PLACE, AND TIME. PT CT ON 04/22/19 SHOWS PE, PT REFUSED LOVENOX PER FABRICATING MACHINE OPERATOR AND HAS NOW TAKEN XERALTO PER ORDERS. NURSE AND PT HAD DISCUSSION THIS AM ABOUT HIS UNDERSTANDING OF HIS CONDITION. PT STATES "I DON'T HAVE A CLOT IN MY LUNG, I JUST HAVE BACK PAIN". WHEN NURSE INFORMED PT THAT THE PULMONARY EMBOLI WERE SEEN ON HIS CT SCAN HE CONTINUED TO DENY THAT THEY WERE PRESENT. NURSE EDUCATED ABOUT COMPLICATIONS OF PE INCLUDING CARDIAC ARREST, PLEURAL EFFUSION, ARRHYTHMIA, AND PULMONARY INFARCTION, INCLUDING S/S. PT NOT RECEPTIVE TO EDUCATION AND THEN STATED "THE DOCTOR LAST NIGHT TOLD ME THAT ALL IN NEED TO DO IS TAKE THAT PILL TWO TIMES AND I JUST TOOK THE LAST ONE SO THAT'S ALL I NEED TO DO." NURSING WILL CONTINUE TO MONITOR FOR COMPLICATIONS OF PE AND ATTEMPT TO REINFORCE EDCUATION. ON ASSESSMENT LUNG SOUNDS DIMINISHED IN ALL LOBES BILATERALLY, HR REGULAR, BLOOD PRESSURE ELEVATED AT 142/101 HR 67, SPO2 98% ON ROOM AIR. REPORTS PAIN 9/10 IN BACK, PAIN MEDICAITONS ADMINISTERED PER ORDERS, PT DENIES RELIEF BUT DOES HAVE PERIODS OF REST IN BED. LARGE LOOSE INCONTIENT STOOL THIS SHIFT. FALL PRECAUTIONS IN PLACE. NURSING WILL CONTINUE TO MONITOR. THERAPIES ON HOLD AND PT ON BEDREST UNTIL CLEARED BY HOSPITALIST.
[2019-04-23 19:52] VITALS: BP 143/69
--- NOTE | 2019-04-24 02:55 | NUR ---
ASSUMED CARE AT APPROX 1900 EVENING 04/23. PT LYING IN BED WITH HEAD OF BED ELEVATED DOZING OFF AND ON. THERAPY CONTINUES TO BE ON HOLD FOR PT. PT VOIDING PER URINAL SOMETIMES ASKING FOR ASSISTANCE TO HOLD CONTAINER. PT STILL REFUSING TO TAKE LOVENOX INJECTION AND STATING HE DOESN'T HAVE A BLOOD CLOT AND WHY DO WE KEEP "BUGGING" HIM TO TAKE SHOT. PT EDUCATION GIVEN AGAIN TO PT REGARDING PE AND TREATMENT. PT TOOK HS MEDS WITH WATER TOLERATING WELL. PT APPEARS TO BE SLEEPING SOUNDLY WITH HOURLY ROUNDING CHECKS. PT ON ROOM AIR, VSS. BED ALARM ON, CALL LIGHT IN REACH. WILL CONTINUE TO MONITOR.
[2019-04-24 07:50] VITALS: BP 142/71
--- NOTE | 2019-04-24 12:32 | NUR ---
ASSUMED CARE AT 0700, A&O X 3, COG DEFICIT NOTED. VSS O2 ON RA. PT C/O PAIN AND RECEIVED WILDA AND PRN WITH SOME RELIEF. PT ON BEDREST/THERAPY HELD FOR NEW ONSET PF P.E.,ASYMPTOMATIC AT THIS TIME, PT TOOK PO XARELTO SCHEDULED. IV TO LAC, STATLOCK AND FLUSHES WELL. INCONTINENT OF BOWEL AND BLADDER AT TIMES. USES URINAL WITH ASSEST. BED IN LOWEST POSITION, CALL LIGHT WITHIN REACH, WILL CONTINUE TO MONITOR PER POC.
[2019-04-24 21:05] VITALS: BP 154/93
[2019-04-24 21:08] VITALS: BP 154/93
[2019-04-24 22:00] VITALS: BP 146/82
--- NOTE | 2019-04-24 23:32 | NUR ---
PT ASSESSMENT COMPLETED. MEDS GIVEN ORDERED AND WELL TOLERATED. ASST WITH REPOSITION FOR COMFORT. DSG ON PRESSURE WOUND INTACT. INC OF SMALL AMOUNT OF BM. ASST WITH KENAN CARE. SAT WNL ON RA. PRN PAIN MEDICATION HELPFUL. SLEEPING AT THIS TIME. FALL PRECAUTIONS IN PLACE. WILL CONTINUE TO MONITOR FREQUENTLY.
[2019-04-25 10:04] VITALS: BP 145/83
[2019-04-25 12:17] LABS: URINE BILIRUBIN NEGATIVE (Negative); URINE BLOOD 3+ (Negative); URINE CLARITY CLEAR; URINE COLOR YELLOW; URINE GLUCOSE-RANDOM* TRACE (Negative); URINE KETONES NEGATIVE (Negative); URINE LEUKOCYTES-REFLEX NEGATIVE (Negative); URINE NITRITE-REFLEX NEGATIVE (Negative); URINE PROTEIN (DIPSTICK) TRACE (Negative); URINE SPECIFIC GRAVITY 1.015 (1.005-1.035); URINE UROBILINOGEN >= 8.0 E.U./dl (0.2-1.0)
[2019-04-25 12:32] LABS: BACTERIA-REFLEX 1-9 Few /HPF (None Seen); CASTS None Seen /LPF (None Seen); CRYSTALS None Seen /LPF (None Seen); SQUAMOUS 0-3 Few /LPF (0-3); URINE RBC >20 Many /HPF (0-2); URINE WBC-REFLEX 0-5 Rare /HPF (0-5)
--- NOTE | 2019-04-25 18:03 | NUR ---
ASSUMED CARE OF PT AT 0700. PT IS A&OX4 AND VITAL SIGNS ARE STABLE. PT REPORTS PAIN 9/10 IN BACK, PO PAIN MEDICAITONS PROVIDED PER ORDER, PT DENIES RELIEF. ULTRASOUND ORDERED R/O DVT DUE TO PE NOTED ON EARLIER CT SCAN. PT CLEARED BY HOSPITALIST FOR THERAPIES. UA ORDERED, PROVIDER AWARE OF RESULTS, NO NEW ORDERS. PT INCONTINENT OF BOWEL AND BLADDER. SPIRITUAL CARE VISITED WITH PT THIS AFTERNOON. PT WOUNDS CLEANED AND DRESSED PER ORDERS. HR REGULAR, LUNG SOUNDS CLEAR IN ALL LOBES, BOWEL SOUNDS ACTIVE IN ALL QUADRANTS. FALL PRECAUTIONS IN PLACE, NURSING WILL CONTINUE TO MONITOR.
[2019-04-25 19:15] VITALS: BP 127/72
--- NOTE | 2019-04-26 01:01 | NUR ---
PT ALERT AND ORIENTED X 4. VOIDING WITHOUT DIFFICULTY PER URINAL. PT C/O PAIN IN HIS BACK. PERCOCET GIVEN AT HS AND PT SLEEPING UPON REASSESSMENT. BED ALARM ON FOR SAFETY. PT APPEARS TO BE SLEEPING ON HOURLY ROUNDS.
[2019-04-26 08:00] VITALS: BP 141/54
--- NOTE | 2019-04-26 11:37 | NUR ---
ASSUMED CARE AT 0700. PATIENT IS ALERT AND ORIENTED X3, WITH POOR INSIGHT. PATIENT LAINEZ'S, MILITARY PAY TECHNICIAN ARE EQUAL. LUNGS ARE CLEAR AND DEMINISHED. ABD IS SOFT WITH BSX4. PATIENT IS UP WITH GAIT BELT AND WALKER. ULTRASOUND TO L.E. WERE NEGATIVE. THERAPY WAS RESUMED YESTERDAY. UP IN BED FOR MEALS. FALL AND SAFETY PROTOOCLS IN PLACE. C/O BACK PAIN CONTINUOUSLY. MEDICATED WITH PERCOCET THIS AM. CONTINUES TO PROGRESS SLOWLY TOWARDS D/C GOALS. WILL CONTINUE TO MONITER.
--- NOTE | 2019-04-26 13:49 | NUR ---
team meeting, recommendation: pt will have outpt radiation appointment set up per bedside nurse for at dc from acute rehab. clarify that sig other she doesnt live with him, she just here often. pt reported [facility], he needing 24hr cg. need
[2019-04-26 19:20] VITALS: BP 123/65
--- NOTE | 2019-04-27 00:14 | NUR ---
PT ASSESSMENT COMPLETED AND VSS. MEDS GIVEN ORDERED AND WELL TOLERATED. FALL PRECAUTIONS IN PLACE. VOIDING MODERATE AMOUNT OF DARK YELLOW URINE WITH ASST USING URINAL. ASST WITH REPOSITION FOR COMFORT. BARRIER CREAM APPLIED TO PRESSURE WOUND X 2. DRESSING ON ONE OF THE TWO WOUNDS IS DRY AND INTACT. CLEANED AND DRYED FUNGAL FOLD AREAS ON ABD. APPLIED NYSTATIN POWDER AND INTERDRY SHEETS. APPLIED FUNGAL BARRIER CREAM TO SCROTUM AND GROIN AREAS. PT DID NOT WANT TO CHANGE CLOTHING OR REMOVE BRIEF. WAS ABLE TO ENCOURAGE HIM TO DO SO. PRN PAIN MEDICATION WORKING WELL. SLEEPING. WILL CONTINUE TO MONITOR FREQUENTLY.
--- NOTE | 2019-04-27 10:57 | NUR ---
DISCHARGE PLANNING: PATIENT'S DESIGN SALES CONSULTANT FROM [place], [facility] PALMA, VISITED WITH HIM TODAY, AND OFFERED ASSIST FOR DC PLANNING. HER PHONE IS [phone]. [place] ALERTED MARTINEZ ALVAREZ RNCM REGARDING THIS. SWAPNA NOTED THAT PT ALREADY HAS MEALS ON WHEELS FOR HOME, AND A HOME HEALTH AGENCY. [employer] IS AVAILABLE TO ASSIST WITH RADIATION ONCOLOGY APPOINTMENTS, TO INCLUDE TRANSPORTATION PLAN, AND HAS REQUESTED A CALL FROM OUR CASE MANAGEMENT TEAM WHEN WE ARE READY FOR DC PLANNING HELP. PATIENT NOTED TO HER THE PLAN FOR DC TO HOME ON 05/09, AND STATED THAT HE WOULD LIKE THEIR CONTINUED HELP AFTER DISCHARGE. IT WAS NOTED THAT PT HAS A COMBINATION OF PROVIDERS, BOTH THROUGH THE [facility] WELL THROUGH [facility].
--- NOTE | 2019-04-27 12:31 | NUR ---
Nutrition followup: pt continues to eat very well, 75-100% of meals on regular diet. No recent BG taken. Labs reviewed. 2/3 BM. Weight down 4# from last eval. BMI remains in obesity class 2 category. Will follow trends. Pt requested RD assistance in ordering dinner from alternative menu which was provided. Encouraged pt to request assist with this as needed. Change to low nutrition risk with consistently excellent intake.
--- NOTE | 2019-04-27 16:44 | NUR ---
ASSUMED CARE AT 0700. PATIENT IS ALERT AND ORIENTED X4. PATIENT LAINEZ. LUNGS ARE CLEAR. ABD IS SOFT WITH REDNESS UNDER ABD FOLDS. PATIENT IS USING THE URINAL TO VOID CHRISTINA COLORED URINE. ENCOURAGED PO FLUIDS. UP IN BED FOR MEALS. UP WITH ASSIST OF 1 STAFF WITH GAIT BELT. PATIENT HAS SMALL ABRASION FROM SHEARING. Z GUARD APPLIED WITH OPTIFOAM. NYSTATIN POWDER APPLIED. TO ABD FOLDS. S.L. IN LEFT AC PATENT AND INTACT. FALL AND SAFETY PROTOCOLS IN PLACE C/O PAIN IN HIS BACK AND HIPS . MEDICATED WITH PAIN MEDS ORDERED. WILL CONTINUE TO MONITER.
[2019-04-27 19:55] VITALS: BP 147/60
--- NOTE | 2019-04-28 00:59 | NUR ---
PT ALERT AND ORIENTED X 4. VOIDS PER URINAL WITH ASSISTANCE. C/O PAIN IN HIS BACK. PERCOCET GIVEN AT HS. PT APPEARS TO BE SLEEPING ON HOURLY ROUNDS. BED ALARM ON FOR SAFETY.
--- NOTE | 2019-04-28 08:00 | NUR ---
Assumed care of patient this am. Patient in bed. Patient awake and has complaint of pain. Patient takes medications whole. Patient ambulates with wheel chair. Patients assessment shows clear breath sounds diminished in the bases, active bowel sounds, and s1 s2 heard with auscultation.
--- NOTE | 2019-04-28 09:38 | H ---
[facility] [place] [address] HISTORY AND PHYSICAL Name: SUZETTE SEVERINO Room #: 516-1 ADM IN M.R.#: [id number] Admission: 04/20/19 Attend Phys: Carlos Valdivia MD Discharge: Date of : 59 Report #: [id number] THIS REPORT FOR: //name// CC: Carlos Valdivia [facility] unknown DATE OF SERVICE: 04/20/2019 HISTORY AND PHYSICAL/POST- ADMISSION PHYSICIAN EVALUATION HISTORY OF PRESENT ILLNESS: This is a 63-year-old male who was originally admitted to [facility] on 04/14/2019 with inability to ambulate secondary to acute back pain. He had a fall 4 days prior to his acute hospital admission and eventually was unable to walk. He reported constipation and a 30-pound weight loss in the last 2 months. Back pain was in the lower back and radiated down both legs, right greater than left. MRI showed lumbar spinal stenosis and degenerative arthritis along with an L1 lytic lesion very suspicious appearing for malignancy. The hospitalist has been involved as well as Oncology. He did undergo L1 vertebral body core biopsies by Interventional Radiology. Hematology was involved and they are awaiting final results of these biopsies. In the meantime, he has been diagnosed with a lumbar radiculopathy and has lower extremity weakness, right greater than left. He has also been diagnosed with critical care myopathy and deconditioning. He has chronic lower extremity lymphedema as a contributory factor. He also has premorbid schizophrenia. Nevertheless, living in the community. He has now been admitted for acute in-hospital inpatient rehabilitation. PAST MEDICAL HISTORY: Includes schizophrenia, lymphedema, cellulitis, chronic pain. He apparently was receiving once monthly injections at and [facility] ALLERGIES: MOTRIN, ASPIRIN, AND TRAMADOL. MEDICATIONS: Please see the full medication listing. SOCIAL HISTORY: The patient has been living in a duplex alone. He was independent with ADLs and IADLs, does not drive and did not utilize any adaptive device. REVIEW OF SYSTEMS: No current complaints of chest pain, abdominal discomfort or shortness of breath. He has the back pain and right lower extremity greater than left lower extremity weakness. PHYSICAL EXAMINATION: GENERAL: He is an obese -Serbian 63-year-old, no obvious distress. VITAL SIGNS: Temperature 97.4, pulse 77, respirations 24, blood pressure is [facility] [address] [place] [address] HISTORY AND PHYSICAL Name: SUZETTE SEVERINO Room #: 516-1 ADM IN M.R.#: [id number] Admission: 04/20/19 Attend Phys: Carlos Valdivia MD Discharge: Date of : 59 Report #: [id number] 144/76. NEUROLOGIC: He is alert, somewhat flat affect, but follows basic commands, appeared appropriate. HEENT: Facies are symmetric. CHEST: Sounded clear to auscultation. CARDIOVASCULAR: Regular rate and rhythm. ABDOMEN: Obese, bowel sounds positive, nontender. GENITOURINARY AND RECTAL: Deferred. EXTREMITIES: He has functional range of motion of both upper extremities with strength grade 4-/5. DTRs are trace to 1. Lower extremities: He does have weakness of the right lower extremity. He has difficulty lifting up that leg up antigravity. Left lower extremity, he could lift it several inches off the bed. He does have some venous stasis changes distally, it is probably a grade 3+ in dorsiflexion. Functionally, he is mod assist, sit to stand and was able to ambulate 3 feet mod assist with a front-wheeled walker. ASSESSMENT: A 63-year-old -Serbian male with the following problem list: 1. Lumbar radiculopathy with bilateral lower extremity weakness, right greater than left. 2. Lytic spine lesion, status post biopsy with Oncology involved. 3. Schizophrenia. 4. Obesity. 5. Lymphedema. 6. Degenerative arthritis. 7. A 30-pound unintentional weight loss. PLAN: The patient has been admitted for acute in-hospital inpatient rehabilitation. From a postadmission physician evaluation perspective, there are no relevant changes since the preadmission screening. Please see the above review of prior and current medical and functional conditions and comorbidities. Please see the patient's previous and current functional status. As far as risk of complications, the patient has multiple medical comorbidities as noted above. Initial plan of care involves the interdisciplinary acute inpatient rehabilitation program. Measurable functional goals would be for the patient to become modified independent with transfers, mobility and ADLs, so he can hopefully return back to his prior living situation. We also need to see what Oncology says pending the biopsy results. Prognosis is reasonably good with estimated length of stay probably 2-3 weeks pending progress. Potential barriers would include his multiple medical comorbidities and decreased functional status. The patient meets diagnostic criteria for an acute in-hospital inpatient rehabilitation stay. He meets the medical necessity criteria and we will have [facility] [address] [place] [address] HISTORY AND PHYSICAL Name: SUZETTE SEVERINO Room #: 6-1 ADM IN M.R.#: [id number] Admission: 04/20/19 Attend Phys: Carlos Valdivia MD Discharge: Date of : 59 Report #: [id number] the healthcare economics consultant physicians continue to follow. He does have the tolerance for therapies and has appropriate discharge goals back to the home setting. <ELECTRONICALLY SIGNED> By: Carlos Valdivia MD 04/28/19 0938 [id number] Carlos Valdivia MD /nt
--- NOTE | 2019-04-28 09:38 | PLAN ---
[facility] [place] [address] REHAB UNIT PLAN OF CARE Name: SUZETTE SEVERINO Room #: 516-1 ADM IN M.R.#: [id number] Admission: 04/20/19 Attend Phys: Carlos Valdivia MD Discharge: Date of : 59 Report #: [id number] THIS REPORT FOR: //name// CC: Carlos Valdivia [facility] unknown DATE OF SERVICE: 04/22/2019 PROGRESS NOTE/OVERALL PLAN OF CARE SUBJECTIVE: The patient was seen back today in followup. He is in no distress. Last recorded temperature 97.2, pulse 58, respirations 18, blood pressure 135/75. He is alert. No focal calf swelling. Transfers are min assist. Gait 120 feet min assist with front-wheeled walker. He ambulates very slowly. In occupational therapy, lower body dressing is dependent, upper body dressing is mod assist. Pain appears to be better controlled. He is on Cymbalta as well as Percocet. ASSESSMENT: 1. Lumbar radiculopathy with bilateral lower extremity weakness, right greater than left. 2. Lytic spine lesion, status post biopsy. Oncology is recommending CT scans to further assess. 3. Schizophrenia. 4. Obesity. 5. Lymphedema. 6. Degenerative arthritis. 7. A 30-pound unintentional weight loss. PLAN: The overall plan of care is based on the preadmission screen, post-admission physician evaluation and information garnered from therapy assessments. 1. Estimated length of stay is probably 2-3 weeks pending progress. 2. Medical prognosis is reasonably good. 3. Anticipated interventions includes the interdisciplinary acute inpatient rehabilitation program. 4. Anticipated functional outcomes would be for the patient to become modified independent with transfers, mobility and ADLs. Cognitive issues have been raised by physical therapy and we will be asking speech therapy to further assess as well. This will help with discharge planning. 5. Discharge destination would ideally be back to his duplex. We will need to assess further support and assistance in this regard. 6. Expected therapy by discipline includes PT, OT and speech 1 hour per day each five days a week throughout the duration of the acute inpatient rehabilitation stay. [address] [address] REHAB UNIT PLAN OF CARE Name: SUZETTE SEVERINO Room #: 516-1 ADM IN M.R.#: [id number] Admission: 04/20/19 Attend Phys: Carlos Valdivia MD Discharge: Date of : 59 Report #: [id number] Admission labs were apparently canceled. I went ahead and ordered those. <ELECTRONICALLY SIGNED> By: Carlos Valdivia MD 04/28/19 0938 [id number] [id number] Carlos Valdivia MD /PMT
[2019-04-28 10:25] VITALS: BP 152/69
--- NOTE | 2019-04-28 10:39 | NUR ---
wendy had voice message from [facility]ison [facility] [phone], wanted to know dcp so she can [facility] left message requested call back, wendy left message for elvia [facility] [place] [phone] for dcp assistance. madhuri will call with assistance. he already gets meals on wheels, he has 2 fights of stairs, and iván is not reliable help. he has payee through [facility] so he not getting taken advantage of per.
--- NOTE | 2019-04-28 17:38 | NUR ---
PM NOTE: Patient calm, content, and pleasant. Patient states that he is having alot of pain. Patient given medications throughout the day for pain. Patient had two loose stools this am. Patient advised to discuss his pain management with MD. Will continue to monitor.
[2019-04-28 20:00] VITALS: BP 126/72
--- NOTE | 2019-04-29 02:16 | NUR ---
PT CARE ASSUMED WITH PT IN BED WATCHING TV AT 1915.PT IS A/O X4.PT COMPLAINED OF PAIN AND DENIED RELIEVE WITH METHADONE AND WANTED PAIN MEDICATION ORDER CHANGED.PT USES URINAL.FENTANYL PATCH IN PLACE.PT TAKES MEDS WHOLE.WILL CONTINUE TO MONITOR PER POC
[2019-04-29 08:55] VITALS: BP 135/73
--- NOTE | 2019-04-29 14:47 | NUR ---
had phone call from awais with [facility] left message stating pt need to be at [facility] at 1300 for labs then follow up with dr meraz, /[phone], address [address] [facility] [place] [address]. spoke with arnp/business segment manager of [facility] center today [phone] Itzel arora " pt repots still having pain, abilify injection will be due on Apr, he was only doing that because he would not take the pill, [facility] was [facility]. he should cont on the methadone and maybe his fentanyl patch needs to be increased for his pain. keep us updated on his dcp so we will know who to call next to cont his care. eh is his sw [phone] [facility] with [facility] [phone] discussed with arnp and md LISHA wanting stevo friend to come in and work with speech therapy to see if feel this would work out for safe dcp
--- NOTE | 2019-04-29 16:02 | NUR ---
RECEIVED PT'S CARE AROUND 0740; PT. ON BED; AWAKE; ALERT; DURING AM ASSESSMENT C/O BACK PAIN; 10/30; A0X4; PRN PAIN MEDICATION NOT DUE; AM MEDICATION GIVEN; REFUSED MIRALAX; ST. HAVING "DIARRHEA"; PER REPORT PT. HAVING LOOSE STOLS; PER NURSE AID PT. HAD SOFT UNFORMED STOOL DURING AM; REQUESTED PRN PAIN MEDICATION; PRN PAIN MEDICATION CHANGED FROM Q6H TO Q4H; ABLE TO REST EARLY ON THE AFTERNOON; MONITORING; ASSESSMENT CHARGED; FOLLOWING POC; WILL PASS ON REPORT;
--- NOTE | 2019-04-30 03:04 | NUR ---
PATIENT APPRECIATES BEING ALLOWED TO HAVE PERCOCET MORE FREQUENTLY AND REPORTS PAIN ONLY GETTING UP TO 7 RATHER THAN 8. ON THE OTHER HAND HE IS NOW THINKING THAT THE PATCH IS NOT HELPFUL AT ALL. HE IS OPTOMISTIC THAT HE CAN SOON BEGIN RADIATION THERAPY AND THAT IT WILL DO HIM SOME GOOD. TOLERATING TURNS SIDE TO SIDE WITH EACH AND EVERY TIME HE GETS PAIN MEDICINE.
--- NOTE | 2019-04-30 14:25 | NUR ---
Assumed pt care this am, VS stable. Uses the urinal, dark strong smelling urine. Pt refuses to get off the bed unless it is PT that works with him, refused to go out of the room for meal. Pain medication is requested every 4 hours on the dot, claim to have only partial relief though pt would be asleep for most of the time. Pt repositioned every 4 hours same time when pain meds are given. POC followed, will endorse to the night nurse.
[2019-04-30 15:25] LABS: EOSINOPHILS 5.9 % (0.0-3.0); HEMATOCRIT 46.4 % (42.0-52.0); HEMOGLOBIN 14.9 gm/dL (14.0-18.0); MCH 29.5 pg (26.0-34.0); MCHC 32.1 g/dL (28.0-37.0); MCV 91.9 fL (80.0-100.0); MONOCYTES 9.5 % (1.0-8.0); PLATELET COUNT 237 thou/uL (150-400); POLYS 51.6 % (36.0-66.0); RBC 5.04 mil/uL (4.50-6.00); RDW 13.8 % (10.5-14.5); WBC 5.8 thou/uL (4.0-11.0)
[2019-04-30 15:41] LABS: ALBUMIN 2.6 g/dL (3.4-5.0); CALCIUM 9.2 mg/dL (8.5-10.1); CREATININE 0.9 mg/dL (0.7-1.3); MAGNESIUM 1.8 mg/dL (1.8-2.4); POTASSIUM 3.9 mmol/L (3.5-5.1); TOTAL BILIRUBIN 0.3 mg/dL (<0.1-1.0); TOTAL PROTEIN 8.3 g/dL (6.4-8.2)
[2019-04-30 17:05] LABS: URINE BLOOD NEGATIVE (Negative); URINE CLARITY CLEAR; URINE COLOR YELLOW; URINE GLUCOSE-RANDOM* NEGATIVE (Negative); URINE KETONES NEGATIVE (Negative); URINE LEUKOCYTES-REFLEX NEGATIVE (Negative); URINE NITRITE-REFLEX NEGATIVE (Negative); URINE PROTEIN (DIPSTICK) TRACE (Negative); URINE SPECIFIC GRAVITY 1.025 (1.005-1.035); URINE UROBILINOGEN >= 8.0 E.U./dl (0.2-1.0)
[2019-04-30 17:13] LABS: ICTOTEST (BILI CONFIRMATORY) Negative (Negative); URINE BILIRUBIN NEGATIVE (Negative)
--- NOTE | 2019-04-30 18:46 | HC ---
[facility] [place] [address] CONSULTATION Name: SUZETTE SEVERINO Room #: 516-1 ADM IN M.R.#: [id number] Admission: 04/20/19 Attend Phys: Carlos Valdivia MD Discharge: Date of : 59 Report #: [id number] THIS REPORT FOR: cc: [facility] - Clinic physician unknown [facility] - Clinic physician unknown Freddy Ortiz PhD ~ THIS REPORT FOR: //name// CC: Carlos Valdivia [facility] unknown DATE OF SERVICE: 04/23/2019 NEUROBEHAVIORAL STATUS EXAM ATTENDING PHYSICIAN: Carlos Valdivia MD FOOD COURT TEAM MEMBER: Freddy Ortiz, PhD AGE: 63 CLINICAL PRESENTATION: The patient is a 63-year-old -Angolan male admitted to the rehabilitation unit at [facility] for a comprehensive inpatient rehabilitation program to improve functional mobility, activities of daily living and self-care and mental status secondary to deficits from a lumbar radiculopathy with bilateral lower extremity weakness, right greater than left. This assessment also includes a lytic spine lesion and is status post biopsy with involved Oncology. Diagnoses included schizophrenia, obesity, lymphedema, degenerative arthritis, a 30-pound unintentional weight loss. A complete description of his medical condition and history can be found in his medical record. Neuropsychological consultation was requested to provide assistance in the assessment of cognitive and emotional status and to provide recommendations and services. Prior to this most recent admission, the patient reports living independently and alone; however, he has a girlfriend that is described as helping him with instrumental activities of daily living. The patient does not drive. He reports completing the eighth grade, but attained a GED. 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 He is from a family with 1 brother and 4 sisters. He indicated having discontinued driving about 40 years ago. TECHNIQUES UTILIZED: Clinical interview, review of medical records, staff consultation and behavioral observation, mini mental status exam 2 standard version and clock drawing. [facility] [address] [place] [address] CONSULTATION Name: SUZETTE SEVERINO Room #: 516-1 [facility]#: [id number] Admission: 04/20/19 Attend Phys: Carlos Valdivia MD Discharge: Date of : 59 Report #: [id number] EXAMINATION FINDINGS: The patient was alert and cooperative with the assessment. He reports the reason for his hospitalization to have been a fall on ice. He does not report having hit his head. There are no reported auditory or visual hallucinations. He indicates that his cognition is within normal limits. His symptoms are reported to include sleep and anxiety. During the interview he was very fatigued, sluggish and drowsy. His performance on the MMSE 2 brief version is extremely low with a raw score of 12/16, which is a T score of 26 and percentile rank of 1. He was 3/3 for initial registration, 4/5 for orientation to time, 2/[address] and 3/3 for immediate recall of 3 items after a brief time delay and distraction. Performance on the MMSE 2 standard version was extremely low with a raw score of 22/30, T score 28, percentile rank of 1. He was 3/5 for serial sevens, 2/2 for naming, 1/1 for repetition. Auditory comprehension was 3/3, reading and been able to follow with single command which was within normal limits and he is able to write a sentence. However, the patient was unable to accurately copy a simple geometric design. Clock drawing, the patient was able to draw a clock, although deficits are noted in visual spatial construction. He was unable to accurately set the hands of the clock due to stimulus bound effect, suggesting executive dysfunction. As indicated, he appeared overly sedated during the assessment. His eyes frequently closed and he took much effort to participate which is likely a consequence of both the use of narcotic medication. DIAGNOSTIC IMPRESSION: Major neurocognitive disorder (dementia), unspecified, without behavior disorder -- extent to be determined, likely mild to moderate range of deficit. Schizophrenia, by history. Unspecified anxiety disorder. RECOMMENDATIONS: The patient will require supervision, structured routine and schedule to maintain consistency. Reduce as much as medically appropriate medication with sedating features. As stated, the patient appeared quite sedated during this assessment. Supervision in his home following discharge will be necessary to maintain safety. [address] [address] CONSULTATION Name: SUZETTE SEVERINO Room #: 516-1 ADM IN M.R.#: [id number] Admission: 04/20/19 Attend Phys: Carlos Valdivia MD Discharge: Date of : 59 Report #: [id number] Thank you very much for allowing me to provide the consultation on this patient. <ELECTRONICALLY SIGNED> By: Freddy Ortiz, PhD 04/30/19 1846 [id number] [id number] Freddy Ortiz, PhD /nt
[2019-04-30 19:15] VITALS: BP 137/84
[2019-05-01 09:00] VITALS: BP 135/85
--- NOTE | 2019-05-01 12:46 | NUR ---
PT'S PAIN DOES NOT SEEM TO BE CONTROLLED WITH PRN AND SCHEDULED PAIN MEDICATIONS. PHYSICIAN IS AWARE AND STATED TO PT THAT SHE IS GOING TO ADJUST HIS PAIN PATCH. PT IS CALLING FOR PRN PAIN MEDICATION Q4 HOURS AND IS NOT WELL CONTROLLED WITHIN THOSE 4 HOURS AFTER IT IS GIVEN.
--- NOTE | 2019-05-01 17:59 | NUR ---
PT CURRENTLY HAS FENTANYL 25 MCG, 72 HOUR, PATCH ON TO R BACK. NEW ORDER TODAY TO INCREASE PATCH DOSE TO 37.5MCG Q72 HOURS. CURRENT PATCH IS DUE TO BE CHANGED ON Thursday05/02/19. PATCH LEFT ON PT UNTIL NEW PATCH CAN BE APPLIED TOMORROW.
[2019-05-01 19:26] VITALS: BP 145/69
--- NOTE | 2019-05-02 01:26 | NUR ---
PT ALERT AND ORIENTED X 4. PT C/O PAIN IN HIS BACK. OXYCODONE GIVEN ORDERED. PT ASKING FOR PAIN MEDS BEFORE THEY ARE DUE. BED ALARM ON FOR SAFETY. PT APPEARS TO BE SLEEPING ON HOURLY ROUNDS.
[2019-05-02 07:42] VITALS: BP 144/72
--- NOTE | 2019-05-02 16:05 | NUR ---
ASSUMED CARE AT 0700. REPORTS SLEPT GOOD LAST NIGHT. PATIENT IS ALERT AND ORIENTED X4. ABLE TO MAKE HIS NEEDS KNOW. C/O BACK PAIN. HAS LUMBAR RADICULOPATHY AND LYTIC SPINE LESION. DR. GILBERT HAS BEEN AJUSTING HIS MEDS. RATES PAIN 11/30. PT IS ON PERCOCET, METHADONE, TYLNOL AND VOTAREN GEL ORDERED. PAIN MEDS GIVEN AND EMOTION SUPPORT GIVEN. REASSESSMENT PER CHART. LUNGS ARE CLEAR/ DEMINISHED. ABD IS SOFT WITH REDNESS UNDER ABD FOLDS.NYSTATIN AND INNER DRY APPLIED. PATIENT IS USING THE URINAL TO VOID CHRISTINA COLORED URINE. ENCOURAGED PO FLUIDS. UP IN BED FOR MEALS. ENCOURAGED PT TO GET UP MORE. PT REFUSES D/T PAIN, BUT GOT UP AND PARTICIPATED WELL WITH OT AND PT. PAIN UNDER CONTROL D/T GIVEN PAIN MEDS ON TIME. UP WITH ASSIST OF 1 STAFF WITH GAIT BELT AND WALKER. PATIENT HAS SMALL ABRASION FROM SHEARING. Z GUARD APPLIED WITH OPTIFOAM, IT IS HEALED. S.L. IN LEFT AC PATENT AND INTACT. FALL AND SAFETY PROTOCOLS IN PLACE, CALL LIGHT WITHIN REACH. CHECK FREQUENTLY FOR NEEDS AND SAFETY. WILL CONTINUE TO MONITOR.
[2019-05-02 20:12] VITALS: BP 140/68
--- NOTE | 2019-05-03 00:33 | NUR ---
PT ALERT AND ORIENTED X 4. PT C/O PAIN IN HIS BACK. PERCOCET GIVEN ORDERED. PT APPEARS TO BE SLEEPING UPON PAIN REASSESSMENT. BED ALARM ON FOR SAFETY. PT APPEARS TO BE SLEEPING ON HOURLY ROUNDS.
[2019-05-03 07:38] VITALS: BP 129/73
--- NOTE | 2019-05-03 08:17 | NUR ---
ASSUMED CARE AT 0700. HAD SLEEPING AID LAST NIGHT. SLEPT FAIR.PATIENT IS ALERT AND ORIENTED X4. ABLE TO MAKE HIS NEEDS KNOW. C/O BACK PAIN. HAS LUMBAR RADICULOPATHY AND LYTIC SPINE LESION. LAST PERCOCET GAVE AT 0530. RATES PAIN 8/10. OFFER ATIVAN WITH MORNING MEDS THIS AM. DISCUSSED ABOUT CARE PLAN TODAY AND ENCOURAGED PT TO GET UP MORE TODAY MUCH HE CAN AND USING BATHROOM RATHER THAN USING BEDPAN. PAIN MEDS GIVEN AND EMOTION SUPPORT GIVEN. REASSESSMENT PER CHART. LUNGS ARE CLEAR/ DEMINISHED. ABD IS SOFT WITH REDNESS UNDER ABD FOLDS.NYSTATIN AND INNER DRY APPLIED. THEY LOOKS BETTER NOW. PATIENT IS USING THE URINAL TO VOID CHRISTINA COLORED URINE. ENCOURAGED PO FLUIDS. UP IN BED FOR BREAKFAST. WILL TAKE SHOWER WITH OT TODAY. UP WITH ASSIST OF 1 STAFF WITH GAIT BELT AND WALKER. S.L. IN LEFT AC PATENT AND INTACT. FALL AND SAFETY PROTOCOLS IN PLACE, CALL LIGHT WITHIN REACH. CHECK FREQUENTLY FOR NEEDS AND SAFETY. WILL CONTINUE TO MONITOR.
--- NOTE | 2019-05-03 12:53 | NUR ---
team meeting recommendation: st to cont set up training to see if friend iván is able to safety help him at home. needs to have transportation for radiation appointment. he will need to increase use of stairs. if training doesnt go well then need to look at snf. dc [facility] ( pt, ot, st, nursing ) vs skilled.
[2019-05-03 20:00] VITALS: BP 130/76
--- NOTE | 2019-05-04 03:48 | NUR ---
TURNS TO SIDE, PAIN MEDS SCHEDULED PLUS HE ASKS Q4 PRETTY CONSISTENTLY FOR PERCOCET. USING URINAL. DRINKING SODA TWICE THIS SHIFT PER REQUEST. AIR BED THERAPY CONTINUES.
[2019-05-04 08:00] VITALS: BP 142/75
--- NOTE | 2019-05-04 13:39 | NUR ---
cm notified that sw from [facility] here for visit with pt and wanted to talk with pt and cm together. visited at bedside, sheryl voice concerns that he has 2 flights of stairs. va transportation is only for [facility] appointment and his sister doesnt want iván to be the primary cg. education on skilled with pt he stated " i will not go to a facility, i was told i was going to he to do home after this, will not be institutionalized"/zaira. cm re-education on short term rehab " no i wont"/pt. education on private duty and hh. " i get private duty then"/pt. pepe is working on setting up hh through [employer] who also has pd. pt dc changed to 18 so that va will be open and not holiday. stevo will need transportation home with someone to make sure he get up 2 flights of stairs. discuss with cm property maintenance supervisor and ok to vouch with [facility], ok to vouch for transportation, 1 time. will cont following as needed for dc needs.
--- NOTE | 2019-05-04 16:28 | NUR ---
PT ALERT AND ORIENTED TIMES FOUR. VSS. PT C/O BACK PAIN PRN PAIN MEDICATIONS GIVEN WITH SOME RELEIF. PT WORKED WELL WITH PT/OT TODAY, WALKING IN THE HALLWAYS. PT TOLERATES MEDS AND MEALS. PT SLOWLY PROGRESSING TOWRADS POC GOALS.
[2019-05-04 19:48] VITALS: BP 114/73
--- NOTE | 2019-05-05 03:17 | NUR ---
ASSUMED CARE ON 05/04/19 @ 19:30, IN BED A&O X 4. VSS, COOPERATES WITH ASSESSMENT. REPORTS PAIN OF 8/10 IN LUMBAR AND LEGS. REQUESTS PAIN MEDS 2 HOURS BEFORE TIME TO TAKE AGAIN. FENTANYL PATCH IN PLACE ON BACK. HRRR, LUNG SOUNDS DIMINISHED ABD SOUNDS HYPO ACTIVE. REPORTS BM TODAY. WILL CONTINUE TO MONITOR Q 1 HOUR FOR PATIENT SAFETY.
--- NOTE | 2019-05-05 12:17 | NUR ---
Nutrition follow up: Seen for weekly follow up on rehab. Pt very tired after morning therapy, but able to answer RD questions. Continues on a regular diet with no new nutrition concerns. Pt typically eating 75-100% of at least 2 meals/day with overall meal average of 77% per the last 15 recorded meals since 04/30. Weight stable ~270# (04/20: 271.9# vs 04/30: 268#). Recent BM 05/04. RD reminded pt of importance of food group balance at meals and emphasized protein importance of 1-2 sources/meal. Identified what counts as protein. Remains low nutrition risk w/ no questions or additional nutrition needs.
--- NOTE | 2019-05-05 14:03 | NUR ---
DISCHARGE PLANNING: ANJELICA SARABIA NP AT [facility], CALLED AND REQUESTED THAT THE MD/SEAMING MACHINE OPERATOR THAT WOULD BE PROVIDING DISCHARGE ORDERS PLEASE CALL HER TO DETERMINE WHAT DC FOLLOWUP IS RECOMMENDED BY THEIR GROUP. NIEVES CHAPMAN NP WAS NOTIFIED OF THIS VIA MESSAGING, AND PROVIDED ANJELICA'S CONTACT NUMBER: [phone].
--- NOTE | 2019-05-05 15:00 | NUR ---
RECEIVED PHONE CALL [facility], CHECKED PT MEDICAID AND IT IS INACTIVE. HE WILL NEED TO HAVE THAT STARTED HERE BEFORE HE IS DC. ALSO SPOKE WITH PT SISTER WHO WANTS HIM TO GO TO FACILITY FOR MORE REHAB. IF HE GOES HOME IT WILL HAVE TO BE HOT LINE. HE HAS NO ONE TO CARE FOR HIM AT HOME AND CAN NOT AFFORD TO PAY FOR PRIVATE DUTY"/EDNA IA. CM PASSED ON INFORMATION TO 5N TEAM. PT CONT TO REFUSE TO GO SKILLED. WILL CONT FOLLOWING NEEDED FOR DC NEEDS. RECEIVED PHONE CALL FROM [facility] THEY STILL HAS HIM SET UP FOR APPOINTMENT ON 1299 IN [facility] LOCATION AND THEY DO NOT HAVE ANY TYPE OF ASSISTANCE FOR TRANSPORTATION"/[facility] AND [facility]NAGEMENT BOTH HAVE VOICED CONCERNS ABOUT PT FRIEND HUBER MANAGES PT MEDICATION AND CONTROLLED MEDICATION AT HOME.
--- NOTE | 2019-05-05 17:30 | NUR ---
SEVERAL ATTEMPTS HAVE BEEN MADE TO CONTACT THE PATIENT'S FRIEND HUBER RAJANI TO SCHEDULE A TIME FOR TRAINING OF MEDICATION MANAGEMENT FOR THE PATIENT. HER VOICEMAIL BOX IS FULL AND UNABLE TO ACCEPT MESSAGES.
--- NOTE | 2019-05-05 19:50 | NUR ---
ASSUMED CARE AT 0700. SLEPT FAIR. PATIENT IS ALERT AND ORIENTED X4. ABLE TO MAKE HIS NEEDS KNOW. C/O BACK PAIN. HAS LUMBAR RADICULOPATHY AND LYTIC SPINE LESION. LAST PERCOCET GAVE AT 0530. RATES PAIN 8/10. PAIN MEDS GIVEN SCHEDULED AND PRN. FENTANYL NEW PATCH GIVEN AND OLD PATCH DISPOSE WITH ROBERT BERMUDEZ. DISCUSSED ABOUT CARE PLAN TODAY AND ENCOURAGED PT TO GET UP MORE TODAY MUCH HE CAN AND USING BATHROOM RATHER THAN USING BEDPAN. PAIN MEDS GIVEN AND EMOTION SUPPORT GIVEN. PT WAS ABLE TO GET UP FOR BREAKFAST AND LUNCH. ABLE TO DO 16 STEPS FOR STAIR. REASSESSMENT PER CHART. LUNGS ARE CLEAR ABD IS SOFT. REFUSED MIRALAX THISAM. UNDER ABD FOLDS WET. INNER DRY APPLIED. THEY LOOKS BETTER NOW. PATIENT IS USING THE URINAL TO VOID CHRISTINA COLORED URINE. ENCOURAGED PO FLUIDS. UP IN BED FOR BREAKFAST. UP WITH ASSIST OF 1 STAFF WITH GAIT BELT AND WALKER. S.L. IN LEFT AC PATENT AND INTACT. FALL AND SAFETY PROTOCOLS IN PLACE, CALL LIGHT WITHIN REACH. CHECK FREQUENTLY FOR NEEDS AND SAFETY. GAVE REPORT TO NIGHT NURSE TO CONTINUE TO MONITOR.
[2019-05-05 20:14] VITALS: BP 121/72
--- NOTE | 2019-05-05 23:27 | NUR ---
PT ASSESSMENT DONE AND VSS. MEDS GIVEN AND WELL TOLERATED. FALL PRECAUTIONS IN PLACE. SLEEPING WELL. HOURLY ROUNDING. CALL LIGHT IN REACH. WILL CONTINUE TO MONITOR.
[2019-05-06 08:00] VITALS: BP 125/73
--- NOTE | 2019-05-06 15:58 | NUR ---
FAXED FACE SHEET TO DUTCH AT [facility] TO HELP WITH MEDICAID APPLICATION.
--- NOTE | 2019-05-06 16:24 | NUR ---
tried to provide more education to stevo on going skilled before going home and he is still refusing. " going home"/stevo. cm notified that pt friend iván is coming on thursday for training eval with therapy and speech.
--- NOTE | 2019-05-06 16:52 | NUR ---
ASSUMED CARE AT 0700. PATIENT IS ALERT AND ORIENTEDX4 , BUT FORGETFUL. PATIENT MIGEL'S, PATIENT IS UP WITH ASSIST OF 1 STAFF WITH GAIT BELT AND WALKER. UP IN THE CHAIR FOR MEALS. FALL AND SAFETY PROTOCOLS IN PLACE. CONTINUES TO HAVE BACK, AND HIP PAIN. MEDICATED WITH SCED AND PRN PAIN. VOIDING PER URINAL. WILL CONTINUE TO MONITER.
[2019-05-06 19:20] VITALS: BP 129/68
[2019-05-07 07:33] LABS: ABSOLUTE NEUTROPHILS 2.1 thou/uL (1.4-8.2); BASOPHILS 1.3 % (0.0-2.0); EOSINOPHILS 8.6 % (0.0-3.0); HEMATOCRIT 44.8 % (42.0-52.0); HEMOGLOBIN 14.3 gm/dL (14.0-18.0); LYMPHOCYTES 41.3 % (24.0-44.0); MCH 29.3 pg (26.0-34.0); MCHC 31.8 g/dL (28.0-37.0); MCV 91.9 fL (80.0-100.0); MONOCYTES 8.4 % (1.0-8.0); PLATELET COUNT 199 thou/uL (150-400); POLYS 40.4 % (36.0-66.0); RBC 4.87 mil/uL (4.50-6.00); RDW 13.8 % (10.5-14.5); WBC 5.3 thou/uL (4.0-11.0)
[2019-05-07 07:48] LABS: CALCIUM 9.5 mg/dL (8.5-10.1); CREATININE 0.9 mg/dL (0.7-1.3); MAGNESIUM 1.6 mg/dL (1.8-2.4); POTASSIUM 4.1 mmol/L (3.5-5.1)
--- NOTE | 2019-05-07 09:20 | NUR ---
ASSUMED CARE AT 0700. PATIENT IS ALERT AND ORIENTED X4, BUT FORGETFUL. PATIENT IN BED FOR MEALS TODAY. LUNGS ARE CLEAR AND DEMINISHED. ABD IS SOFT WITH BSX4. REFUSED MIRALAX. PATIENT IS UP WITH ASSIST OF 1 STAFF AND GAIT BELT, AND WALKER. PATIENT LAINEZ'S. FALL AND SAFETY PROTOCOLS IN PLACE. C/O PAIN IN HIS BACK AND HIPS. CONTINUES ON SCED PAIN MEDS AND PRN PAIN MEDS. PLAN D/C ON . NEXT WEEK. CONTINUES TO PROGRESS SLOWLY TOWARDS D/C GOALS. WILL CONTINUE TO MONITER.
[2019-05-07 09:55] VITALS: BP 136/60
[2019-05-07 21:05] VITALS: BP 106/66
--- NOTE | 2019-05-08 03:52 | NUR ---
CONTINUES TO TAKE PAIN MEDS ALMOST FREQUENTLY HE CAN IN ORDER TO KEEP PAIN LEVEL AT 8 OR LOWER. APPRECIATES LIDODERM PATCH AND BEING ON RIGHT SIDE FURTHER THAN USUAL. USING URINAL
[2019-05-08 08:15] VITALS: BP 145/77
--- NOTE | 2019-05-08 17:07 | NUR ---
ASSUMED CARE OF PT AT 0700. PT IS A&OX4 AND VITAL SIGNS ARE STABLE. PT REPORTED PAIN IN LOWER BACK, MANAGED WITH ORDERED PAIN MEDICAITONS. PT PARTICIPATED IN CARES WITH NURSING STAFF. LUNG SOUNDS CLEAR IN ALL LOBES, HR REGULAR, BOWEL SOUNDS ACTIVE IN ALL QUADRANTS. SKIN FOLD CARE COMPLETED. CALLS APPROPRIATELY FOR ASSITANCE, FALL PRECAUTIONS IN PLACE, NURSING WILL CONTINUE TO MONITOR.
[2019-05-08 20:45] VITALS: BP 122/68
--- NOTE | 2019-05-09 01:38 | NUR ---
PATIENT HAS BEEN PLEASANT AND COOPERATIVE TONIGHT. HE HAS NEEDED HIS OXYCONTIN PAIN MED EVERY 4 HOURS. HE ALSO HAS BEEN TAKING HIS SCHEDULED METHADONE. DICLOFENAC CREAM APPLIED TO BACK AT MIDNIGHT WITH SOME RELIEF. PATIENT IS BACK TO SLEEP AT THIS TIME AND SLEEPING SOUNDLY. WILL CONTINUE TO MONITOR.
--- NOTE | 2019-05-09 10:11 | NUR ---
wendy notified by that pt has agree to go to skilled rehab prior to going home to his apartment. cm took skilled list and he stated " ok thanks i never been to any so close to my home or anywhere"/stevo. bedside nurse in room with pt. iván pt friend has not arrived for training with speech. will send out referrals for skilled rehab.
--- NOTE | 2019-05-09 13:26 | NUR ---
DISCHARGE PLANNING. ANTICIPATED DISCHARGE TOMORROW. POST ACUTE RECOMMENDED AT DISCHARGE PER UNIT CM. PATIENT REFERRAL FAXED TO [facility]. CALL PLACED TO [facility] ADMISSIONS. [facility]ATH TO REVIEW PATIENT CLINICALS AND NOTIFY CM.
[2019-05-09 20:20] VITALS: BP 142/68
--- NOTE | 2019-05-09 20:27 | NUR ---
PATIENT ALERT AND ORIENTED AND NEEDS ENCOURAGEMENT TO PARTICIPATE IN TREATMENT PLAN. PATIENT ASKS FOR PRN PAIN MED EACH TIME THEY ARE AVAILABLE AND INDICATED HE HAS PAIN IN IN BACK AND LOWER EXTREMITIES. APPLIES HEATING PAD AND LIDOCAINE PATCH TO LOW BACK. FENTENLY PATCHES ON BACK.
--- NOTE | 2019-05-10 01:17 | NUR ---
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 HE HAS APPEARED MORE TIRED TONIGHT. HE CONTINUES TO ASK FOR HIS PERCOCET Q 4 HOURS FOR HIS BACK PAIN. HE HAS 2 FENTANYL PATCHES ON HIS BACK AND LIDOCAINE PATCH WAS REMOVED TILL MORNING. DICLOFENAC OINTMENT APPLIED TO HIS HIS BACK WITH SOME RELIEF. PATIENT IS TO BE D/C'D TO [facility] AT [place] TODAY SOMETIME. PATIENT IS SLEEPING AT THIS TIME.
--- NOTE | 2019-05-10 05:24 | NUR ---
PATIENT HAD INCONTINENT CARES DONE AND BED CHANGED AT 0200. OXYCODONE AND ATIVAN PRN ORDERS GIVEN. PATIENT HAS NOT SLEPT WELL TONIGHT. HE IS ANTICIPATING DISCHARGING AND MOVING TO A NEW FACILITY HOME AT [facility]. PATIENT IS SLEEPING AT THIS TIME. SIDERAILS UP X 4 AND BED IN LOW POSITION. BED ALARM IS ON. CONTINUING TO MONITOR.
[2019-05-10 08:00] VITALS: BP 150/69
[2019-05-10] MEDS ORDERED: XARELTO15 MG PO (08:51)
[2019-05-10] MEDS ORDERED: MAGOX 400400 MG PO (08:51)
[2019-05-10] MEDS ORDERED: ABILIFY10 MG PO (08:51)
[2019-05-10] MEDS ORDERED: LIDOPATCH1 EACH TRANSDERM (08:51)
[2019-05-10] MEDS ORDERED: PEPCID20 MG PO (08:51)
[2019-05-10] MEDS ORDERED: VOLTAREN GEL 1100 G2 TOP (08:51)
[2019-05-10] MEDS ORDERED: CYMBALTA20 MG PO (08:51)
[2019-05-10] MEDS ORDERED: Dermacerin 4 OZ. TOP (08:51)
--- NOTE | 2019-05-10 09:00 | NUR ---
PT LYING IN BED WITH EYES CLOSED. PT AWAKEN WITH VERBAL STIMULI. PT STATED HE HAS PAIN TO BACK OF 9 THAT IS SHARP AND CONSTANT. PT STATED LBM YESTERDAY. PT HAS WICK DRY CLOTH IN PANIS AREA. PT DENIES ANY NAUSEA. PT REFUSING BREAKFAST THIS AM DUE TO THE PAIN. PT GOAL IS TO DISCHARGE TODAY TO [place]. NOTICED TWITCHING TO HANDS BILATERALY.
[2019-05-10] MEDS ORDERED: DURAGESIC1 EAC4 TRANSDERM (09:23)
[2019-05-10] MEDS ORDERED: PERCOCET 10-321 EACH PO (09:23)
--- NOTE | 2019-05-10 10:34 | NUR ---
wendy notified [facility] location # [phone] alison that pt going to [facility] skilled and they will provide his transportation to [facility] appointment 05/11/2019 at 1300. hilda tobin called and cm notified her that he will be going for short term skilled rehab stay and [facility] to [facility] to support pt if able to assist with pt dc need from skilled. crista [phone]. per hilda tobni he used [employer] in past and will get him restarted with that before going home from [place], thanks for the help"/va dasia tobin. pt can transport in wheel chair van. bedside nurse to call report to [phone]. cm left message with sister xiomy on dcp [phone].
--- NOTE | 2019-05-10 10:39 | NUR ---
ADM PERCOCET 10MG 2 TABS PO FOR PAIN TO BACK OF 10 ON 1-10 SCALE.
--- NOTE | 2019-05-10 13:20 | NUR ---
PT LEFT VIA TRANSPORTATION TO [facility].
--- NOTE | 2019-05-10 13:55 | NUR ---
REPORT WAS GIVEN TO ANSHU AT [facility].
== END 2019-05-10 13:20 | DRG 551 ==
PROVIDERS: Internal Medicine; Nurse Practitioner; ADMIT Physical Medicine & Rehabilitation
DX: M54.16 Radiculopathy, lumbar region (principal); E43 Unspecified severe protein-calorie malnutrition; K59.00 Constipation, unspecified; M48.061 Spinal stenosis, lumbar region without neurogenic claudication; F20.9 Schizophrenia, unspecified; G89.29 Other chronic pain; E66.9 Obesity, unspecified; Z68.37 Body mass index [BMI] 37.0-37.9, adult; I89.0 Lymphedema, not elsewhere classified; M19.90 Unspecified osteoarthritis, unspecified site; F01.50 Vascular dementia, unspecified severity, without behavioral disturbance, psychotic disturbance, mood disturbance, and anxiety; F41.9 Anxiety disorder, unspecified; Z88.6 Allergy status to analgesic agent; Z88.8 Allergy status to other drugs, medicaments and biological substances
CPT/HCPCS: 10112